=== PATIENT | female | born 1935 | race Caucasian/White ===

== ENCOUNTER 2018-11-03 16:22 | Inpatient (IN) ==
--- NOTE | 2018-11-03 19:33 | History & Physical Report ---
Addendum entered and electronically signed by Santa Steiner MD 11/03/18 22:06 : Addendum (Blank) Addendum November 03, 2018 22:02 Left sided chest pain, likely musculoskeletal s/p mechanical fall on to left side -per history consistent with musculoskeletal pain after mechanical fall. + reproducible on exam in left sided ribs. CT of chest revealed no fractures -troponin negative at previous hospital, repeat ordered for AM -will treat with dilaudid PRN as it hurts her to breathe -- incentive spirometry may also be of use. Original Note: Date of Service November 03, 2018 Assessment & Plan (1) Pleural effusion: Ms. Christopher is an 82-year-old female with coronary artery disease , CABG x1 in the past as well as pacer/AICD placement, hypertension, diabetes mellitus, atrial fibrillation, chronic diastolic and systolic CHF, chronic lung disease, JOHN, cirrhosis and ESRD. Also has chronic anemia for which she follows with hematology. She is on in-center hemodialysis MWF. She is a direct admission from [facility]. Had a mechanical fall out of bed on to her left shoulder and side early this morning. Pt states she thinks she was dreaming and wasn't fully awake when she tried to get out of bed. She remembers hitting the floor, and can recall all events since. She was down on her floor, trying to reach her phone, for 30 minutes until her son who lives with her part of the week discovered her and called EMS. At [facility] she was found to have stable vital signs, oxygenating >90 on room air. Labs showed hemoglobin 10.9, hematocrit 37.1. No leukocytosis. INR 1.1. BUN 31. Creatinine 4.0. Potassium 5.7. Magnesium 2.7. Troponin 0 0.02. ProBNP 110,688.0. Anion gap normal. CT of the chest without contrast found no displaced rib fracture. Moderate size right and small left pleural effusions, as well as cirrhosis.. EKG there shows a by ventricular paced rhythm at a rate of 72. Given her pleural effusions, she was sent here for pulmonology. On review of outpatient records, patient follows with Dr. Burgess of [facility], as well as Dr. Griffin in the pulmonology clinic and Dr. Blandon in the cardiology clinic. She has had complications with volume management including ascites and recurrent pleural effusions. She makes urine and voids 2-3 times per day, drinks 1-2 cans of Boost per day. Recently on Oct 22 pt was seen by her lung specialists in [place] Dr. Griffin who noted that her CXR then showed increased pleural effusion and weight up 5lbs. She was not short of breath in the office, but recommended pleurX catheter if there was increasing shortness of breath. Increasing right-sided pleural effusion, chronic lung disease - Oct 22 pt was seen by her lung specialists in [place] Dr. Griffin who noted that her CXR then showed increased pleural effusion and weight up 5lbs. She was not short of breath in the office, but recommended pleurX catheter if there was increasing shortness of breath. Plan: -pulmonolgy consulted, routine, for possible pleurX cath tomorrow -Oxygen as needed -Chest x-ray in a.m. FEN/GI: Heart healthy, T2DM, renal diet DVT ppx: On Eliquis CODE STATUS: Full code as confirmed with patient. DISPO: MedSurg (2) Obstructive sleep apnea: Continue CPAP (3) CAD (coronary artery disease): Continue home Lipitor 20 mg p.o. at bedtime (4) Hx of CABG: As above (5) Biventricular cardiac pacemaker in situ: Stable, no current issues (6) Atrial fibrillation: Currently in sinus, continue Eliquis. Continue home losartan 12.5 daily (7) Type 2 diabetes mellitus: Continue home morning Lantus 20 units. Insulin sliding scale here. (8) Benign essential hypertension: Continue home losartan (9) CHF (congestive heart failure): Continue home Lasix 40 mg twice daily (10) End stage renal disease: On dialysis Sunday -Continue home Nephrocaps -Consult nephrology to coordinate dialysis and patient (11) Cirrhosis of liver: Continue home lactulose as needed No acute encephalopathy, will order ammonia level for a.m. (12) Anemia: This is chronic for patient. Follow. (13) Chronic lung disease: Continue home Advair twice daily Oxygen as needed. Currently oxygenating well on room air. CPAP nightly as above. Pulmonology consult. History of Present Illness Primary Care Provider: Nelson Hernadez MD Ms. Christopher is an 82-year-old female with coronary artery disease, CABG x1 in the past as well as pacer/AICD placement, hypertension, diabetes mellitus, atrial fibrillation, chronic diastolic and systolic CHF, chronic lung disease, JOHN, cirrhosis and ESRD. Also has chronic anemia for which she follows with hematology. She is on in-center hemodialysis MWF. She is a direct admission from [facility]. Had a mechanical fall out of bed on to her left shoulder and side early this morning. Pt states she thinks she was dreaming and wasn't fully awake when she tried to get out of bed. She remembers hitting the floor, and can recall all events since. She was down on her floor, trying to reach her phone, for 30 minutes until her son who lives with her part of the week discovered her and called EMS. At [facility] she was found to have stable vital signs, oxygenating >90 on room air. Labs showed hemoglobin 10.9, hematocrit 37.1. No leukocytosis. INR 1.1. BUN 31. Creatinine 4.0. Potassium 5.7. Magnesium 2.7. Troponin 0 0.02. ProBNP 110,688.0. Anion gap normal. CT of the chest without contrast found no displaced rib fracture. Moderate size right and small left pleural effusions, as well as cirrhosis.. EKG there shows a by ventricular paced rhythm at a rate of 72. Given her pleural effusions, she was sent here for pulmonology. On review of outpatient records, patient follows with Dr. Burgess of [facility], as well as Dr. Griffin in the pulmonology clinic and Dr. Blandon in the cardiology clinic. She has had complications with volume management including ascites and recurrent pleural effusions. She makes urine and voids 2-3 times per day, drinks 1-2 cans of Boost per day. Recently on Oct 22 pt was seen by her lung specialists in [place] Dr. Griffin who noted that her CXR then showed increased pleural effusion and weight up 5lbs. She was not short of breath in the office, but recommended pleurX catheter if there was increasing shortness of breath. Allergies Allergy/AdvReac Type Severity Reaction Status Date / Time adhesive tape Allergy Redness of Verified 11/03/18 21:22 Skin Penicillins Allergy Swelling Verified 11/03/18 21:22 of Lip/Tongue/Throat Home Medications Home Medications Medication Instructions Recorded Confirmed Type Advair Diskus 2 inh Q12 11/03/18 11/03/18 History Bengay Ultra Strength(menthol) 113 g BID 11/03/18 11/03/18 History Colace 100 mg PO UNKNOWN PRN 11/03/18 11/03/18 History Lipitor 20 mg PO HS 11/03/18 11/03/18 History Miralax 17 g PO DAILY 11/03/18 11/03/18 History Nephrocaps 1 cap PO DAILY 11/03/18 11/03/18 History Tylenol 1,000 mg PO UNKNOWN PRN 11/03/18 11/03/18 History apixaban [Eliquis] 2.5 mg PO BID 11/03/18 11/03/18 History brimonidine 1 drp OPHTHALMIC (EYE) BID 11/03/18 11/03/18 History calcium acetate 1,334 mg PO TIDM 11/03/18 11/03/18 History dorzolamide 1 drp BID 11/03/18 11/03/18 History fluticasone 1 spray INTRANASAL DAILY 11/03/18 11/03/18 History furosemide 40 mg PO BID 11/03/18 11/03/18 History insulin aspart U-100 [Novolog See Label Instructions .ROUTE 11/03/18 11/03/18 History Flexpen U-100 Insulin] .COMPLEX insulin glargine [Lantus Solostar 20 units DAILY 11/03/18 11/03/18 History U-100 Insulin] lactulose 15 ml PO UNKNOWN PRN 11/03/18 11/03/18 History latanoprost 1 drp OPHTHALMIC (EYE) HS 11/03/18 11/03/18 History losartan 12.5 mg PO DAILY 11/03/18 11/03/18 History meclizine 25 mg PO UNKNOWN PRN 11/03/18 11/03/18 History multivitamin 1 cap PO DAILY 11/03/18 11/03/18 History mupirocin 22 g BID 11/03/18 11/03/18 History pantoprazole 40 mg PO DAILY 11/03/18 11/03/18 History paroxetine HCl 20 mg PO DAILY 11/03/18 11/03/18 History sennosides [Natural Veg 2 tab PO DAILY PRN 11/03/18 11/03/18 History Laxative(sennosid)] tramadol 50 mg PO UNKNOWN PRN 11/03/18 11/03/18 History Past Med/Surg History Medical History Chronic lung disease (Chronic) Anemia (Chronic) Cirrhosis of liver (Chronic) End stage renal disease (Chronic) CHF (congestive heart failure) (Chronic) Benign essential hypertension (Chronic) Pleural effusion (Chronic) Obstructive sleep apnea (Chronic) Type 2 diabetes mellitus (Chronic) Atrial fibrillation (Chronic) Biventricular cardiac pacemaker in situ (Chronic) CAD (coronary artery disease) (Chronic) Surgical History Hx of CABG (Chronic) Social History Current Living Situation: Alone and Family Current Living Situation Comment: son lives with from Sunday-Sunday Other Information That Helps Us Care for You: No Feels Safe at Home: Yes Safety Concerns: Feels Safe At This Time Smoking Status: Never smoker Hx Alcohol Use: Yes Alcohol Intake Frequency: holidays/special occasions only Hx Substance Use: No Beliefs That Will Affect Care: None Preferred Language: Chadian Communication Ability: Effective Supervisor Claims Required: No Review of Systems All systems reviewed & are unremarkable except as noted in HPI & below (Patient endorses chronic left lower extremity swelling, and history of what sounds like a venous stasis ulcer on her right lower extremity which is healing now. She endorses tenderness in her left ribs. She states it is painful to take deep breaths in her left side. Otherwise denies headache, neck pain, chest pain, abdominal pain, diarrhea or constipation, weakness in her lower extremities.) Physical Exam 2 Physical Exam: GENERAL: Awake, alert to person, place, and time, nontoxic-appearing, in no distress. Well nourished. HENT: Normocephalic, atraumatic. . Mucus membranes appear moist. EYES: Normal conjunctiva. Sclera non-icteric. EOMI. NECK: Supple. Full range of motion. No JVD RESPIRATORY: Diminished at bases -- difficult exam given body habitus. Normal work of breathing. CARDIAC: Regular rate, normal rhythm. Extremities warm and well perfused, 2+ radial pulses bilaterally; 2+ posterior tibialis pulses bilaterally. ABDOMEN: Soft, non-distended. No tenderness to palpation in all four quadrants. No rebound or guarding. No masses. Bowel sounds are normal. LOWER EXTREMITIES: Inspection of calves reveal left larger than right. LEFT calf is erythematous, nontender and edematous. RIGHT calf has trace edema and a healing ulcer on anterior hutton. They are non-tender. 3+ pitting edema on left calf. NEURO: No focal gross focal motor deficits noted. Sensation in tact. CN II-XII grossly in tact. SKIN: Rash not present. No jaundice noted. Superficial lac on left lateral forearm with bandage in tact. PSYCH: Appropriate mood and affect. Cooperative. Exam as done by Santa Steiner MD, Page Designer. Supervising Physician Co-Signing Physician Notes Patient seen and examined, chart reviewed, case discussed with DR. Steiner and I agree with her assessment and plan as above Resident Activity Tracking Resident Involvement: Resident Care Provided Care Provided: Adult [facility]
[2018-11-03] MEDS ORDERED: MAGNESIUM HYDROXIDE SUSP 30 ML UDC PO PRN (20:42)
[2018-11-03] MEDS ORDERED: ALUMINUM/MAGNESIUM SUSP 30 ML UDC PO PRN (20:42)
[2018-11-03] MEDS ORDERED: GLUCAGON FOR INJ 1 MG VIAL SQ PRN (20:42)
[2018-11-03] MEDS ORDERED: GLUCOSE 40% GEL 15 GM TUBE PO PRN (20:42)
[2018-11-03] MEDS ORDERED: DEXTROSE 50% 50 ML SYRINGE IV PRN (20:42)
[2018-11-03] MEDS ORDERED: GLUCOSE 10 TABS/TUBE PO PRN (20:42)
[2018-11-03] MEDS ORDERED: POLYETHYLENE (MIRALAX) 17 GM PACK PO PRN (20:42)
[2018-11-03] MEDS ORDERED: HYDROmorphone INJ 1 MG/ML SYRINGE IV STA (20:47)
[2018-11-03] MEDS ORDERED: PATIENT'S ALLERGY INFO NEEDS ENTERED SCH (21:00)
[2018-11-03] MEDS ORDERED: MECLIZINE HCL 25 MG TAB PO PRN (21:16)
[2018-11-03] MEDS ORDERED: SENNA 8.6 MG TAB PO PRN (21:16)
[2018-11-03] MEDS ORDERED: DOCUSATE SODIUM 100 MG CAP PO PRN (21:16)
[2018-11-03] MEDS ORDERED: LACTULOSE SYRUP 20 GM/30 ML UDC PO PRN (21:16)
[2018-11-03] MEDS: INSULIN ASPART 100 UNITS/ML 3 ML PEN SC SCH (21:34)
--- NOTE | 2018-11-03 21:58 | XRay Report ---
XR elbow LT min 3V routine CLINICAL HISTORY: Left elbow pain status post trauma COMPARISON: None DISCUSSION: No acute fractures are visualized. There is a radial head deformity which is felt to be o ld. Arthritic changes are present at the radiocapitellar joint. There are vascular calcifications. Th ere are multiple surgical clips present. IMPRESSION: 1. Arthritic change 2. No acute fractures Electronically signed by: Abebe Oropeza M.D. 11/03/2018 9:55 PM
[2018-11-03] MEDS: BRIMONIDINE TARTRATE-P 0.15% 5 ML BTL OP SCH (22:23)
[2018-11-03] MEDS: APIXABAN 2.5 MG TAB PO SCH (22:28)
[2018-11-03] MEDS: FUROSEMIDE 40 MG TAB PO SCH (22:29)
[2018-11-03] MEDS: LATANOPROST 0.005% OP SOLN 2.5 ML BTL OP SCH (22:30)
[2018-11-03] MEDS: ATORVASTATIN 20 MG TAB PO SCH (22:30)
[2018-11-03] MEDS: LIDOCAINE 5% 1 PATCH TD SCH (22:31)
[2018-11-03] MEDS: DORZOLAMIDE HCL 2% OPH SOLN 10 ML BTL OP SCH (22:35)
[2018-11-03] MEDS: ADVAIR~ORDER AWAITING ACTION SCH (23:59)
[2018-11-04] MEDS: HYDROmorphone INJ 1 MG/ML SYRINGE IV PRN ×3 (03:13→23:57)
[2018-11-04] MEDS: NEPHROCAPS PO SCH (07:37)
[2018-11-04] MEDS: PARoxetine HCl 20 MG TAB PO SCH (07:38)
[2018-11-04] MEDS: MULTIVITAMIN TAB PO SCH (07:38)
[2018-11-04] MEDS: APIXABAN 2.5 MG TAB PO SCH (07:38)
[2018-11-04] MEDS: CALCIUM ACETATE 667 MG CAP PO SCH ×3 (07:39→19:13)
[2018-11-04] MEDS: FUROSEMIDE 40 MG TAB PO SCH ×2 (07:39→20:27)
[2018-11-04] MEDS: PANTOprazole 40 MG TAB PO SCH (07:40)
[2018-11-04] MEDS: POLYETHYLENE (MIRALAX) 17 GM PACK PO SCH (07:40)
[2018-11-04] MEDS: DORZOLAMIDE HCL 2% OPH SOLN 10 ML BTL OP SCH ×2 (07:40→20:29)
[2018-11-04] MEDS: LOSARTAN POTASSIUM 25 MG TAB PO SCH (07:40)
[2018-11-04] MEDS: BRIMONIDINE TARTRATE-P 0.15% 5 ML BTL OP SCH ×2 (07:41→20:28)
[2018-11-04] MEDS: FLUTICASONE PROPIONATE NA SPR 16 GM BTL SCH (07:42)
[2018-11-04] MEDS: INSULIN GLARGINE SOLOSTAR 100 UNITS/ML 3 ML PEN SC SCH (07:43)
[2018-11-04] MEDS: ADVAIR~ORDER AWAITING ACTION SCH ×3 (07:43→23:57)
[2018-11-04] MEDS: INSULIN ASPART 100 UNITS/ML 3 ML PEN SC SCH ×4 (07:44→20:27)
--- NOTE | 2018-11-04 08:30 | XRay Report ---
XR chest 1V portable CLINICAL HISTORY: 83 years-old Female presenting with pleural effusion. TECHNIQUE: Portable upright AP view of the chest was obtained. COMPARISON: None. FINDINGS: Median sternotomy wires and mediastinal surgical clips noted. Left subclavian implanted cardiac defib rillator with leads to the right atrium, right ventricular apex, and coronary sinus. An additional pr esumably abandoned right ventricular apex lead is also noted. Atherosclerosis of the aortic arch. Car diac silhouette enlarged. Bibasilar hazy opacities with a gradient of density, right greater than lef t. Small moderate right and trace left pleural effusion suspected. Underlying heterogeneity of lung p arenchyma with mild pulmonary vascular prominence and bronchial wall thickening. No large pneumothora x. Degenerative changes of the thoracic spine. IMPRESSION: 1. Cardiomegaly with mild volume overload/congestive change. No sergei pulmonary edema. 2. Small to moderate layering right pleural effusion. 3. Possible trace left pleural effusion. Electronically signed by: Pierre Chapa M.D. 11/04/2018 8:28 AM
[2018-11-04] MEDS ORDERED: SODIUM CHLORIDE 0.9% 1000ML 1,000 ML IV PRN (09:59)
--- NOTE | 2018-11-04 10:16 | Nephrology Consultation ---
Date of Consultation November 04, 2018 Assessment & Plan (1) End stage renal disease: -- Will provide HD today as per chronic outpatient orders. HD RN notified -- Attempt 3.5 L UF w/ HD today to improve respiratory status -- Hold heparin on HD today as patient is on Eliquis therapy (2) Pleural effusion: -- Will attempt 3.5 L UF w/ HD today -- Await Pulmonology/Thoracic Surgery input (3) Anemia: -- Mild anemia. Will monitor and provide ALEXEI if Hgb trends down (4) CAD (coronary artery disease): -- Currently quiescent -- ECG shows ventricular paced rhythm History of Present Illness Reason for Consultation: ESRD requiring HD Requesting Physician: Dr. Cha Attending Physician: Maulik Cha, DO History of Present Illness Ms. Christopher is an 83 year old white female who is seen at the request of Dr. Nash to provide inpatient HD. Medical records in the EMR were reviewed today and are summarized as follows: Ms. Christopher has ESRD and has been on HD for ~ 3 years. She dialyzes via RUE AVG qMWF at [facility] (4hrs F-160NR Qb 400/ Qd 800 2K 2Ca HCO3 30 EDW 100kg). Ms. Christopher was last dialyzed 11/01 and left 1 kg above her EDW. Ms. Christopher's PMH is also significant for obesity ( 5ft 5in wt 102 kg/224 lbs BMI 37.5), AODM, JOHN, a. fib, ASCVD s/p CABG, pacemaker implantation, cardiac cirrhosis and anemia. Ms. Christopher reports that she was sleeping soundly w/ her CPAP last night and fell out of bed. She injured her L cheeck bone and several ribs. She was taken to [facility] where imaging revealed mild CHF a moderate R pleural effusion and trace L effusion. Transfer to [facility] provided to allow for Pulmonology evaluation and inpatient HD. Allergies Allergy/AdvReac Type Severity Reaction Status Date / Time adhesive tape Allergy Redness of Verified 11/03/18 21:22 Skin Penicillins Allergy Swelling Verified 11/03/18 21:22 of Lip/Tongue/Throat Home Medications Home Medications Medication Instructions Recorded Confirmed Type Advair Diskus 2 inh Q12 11/03/18 11/03/18 History Bengay Ultra Strength(menthol) 113 g BID 11/03/18 11/03/18 History Colace 100 mg PO UNKNOWN PRN 11/03/18 11/03/18 History Lipitor 20 mg PO HS 11/03/18 11/03/18 History Miralax 17 g PO DAILY 11/03/18 11/03/18 History Nephrocaps 1 cap PO DAILY 11/03/18 11/03/18 History Tylenol 1,000 mg PO UNKNOWN PRN 11/03/18 11/03/18 History apixaban [Eliquis] 2.5 mg PO BID 11/03/18 11/03/18 History brimonidine 1 drp OPHTHALMIC (EYE) BID 11/03/18 11/03/18 History calcium acetate 1,334 mg PO TIDM 11/03/18 11/03/18 History dorzolamide 1 drp BID 11/03/18 11/03/18 History fluticasone 1 spray INTRANASAL DAILY 11/03/18 11/03/18 History furosemide 40 mg PO BID 11/03/18 11/03/18 History insulin aspart U-100 [Novolog See Label Instructions .ROUTE 11/03/18 11/03/18 History Flexpen U-100 Insulin] .COMPLEX insulin glargine [Lantus Solostar 20 units DAILY 11/03/18 11/03/18 History U-100 Insulin] lactulose 15 ml PO UNKNOWN PRN 11/03/18 11/03/18 History latanoprost 1 drp OPHTHALMIC (EYE) HS 11/03/18 11/03/18 History losartan 12.5 mg PO DAILY 11/03/18 11/03/18 History meclizine 25 mg PO UNKNOWN PRN 11/03/18 11/03/18 History multivitamin 1 cap PO DAILY 11/03/18 11/03/18 History mupirocin 22 g BID 11/03/18 11/03/18 History pantoprazole 40 mg PO DAILY 11/03/18 11/03/18 History paroxetine HCl 20 mg PO DAILY 11/03/18 11/03/18 History sennosides [Natural Veg 2 tab PO DAILY PRN 11/03/18 11/03/18 History Laxative(sennosid)] tramadol 50 mg PO UNKNOWN PRN 11/03/18 11/03/18 History Patient History Medical History Chronic lung disease (Chronic) Anemia (Chronic) Cirrhosis of liver (Chronic) End stage renal disease (Chronic) CHF (congestive heart failure) (Chronic) Benign essential hypertension (Chronic) Pleural effusion (Chronic) Obstructive sleep apnea (Chronic) Type 2 diabetes mellitus (Chronic) Atrial fibrillation (Chronic) Biventricular cardiac pacemaker in situ (Chronic) CAD (coronary artery disease) (Chronic) Surgical History Hx of CABG (Chronic) Social History Current Living Situation: Alone and Family Current Living Situation Comment: son lives with from Sunday-Sunday Other Information That Helps Us Care for You: No Feels Safe at Home: Yes Safety Concerns: Feels Safe At This Time Smoking Status: Never smoker Hx Alcohol Use: Yes Alcohol Intake Frequency: holidays/special occasions only Hx Substance Use: No Beliefs That Will Affect Care: None Preferred Language: Bruneian Communication Ability: Effective City Auditor Required: No Review of Systems Constitutional: no fever Respiratory: no cough, no dyspnea and no wheezing Cardiovascular: no chest pain and no palpitations Gastrointestinal: no abdominal pain, no nausea and no diarrhea/loose stools Genitourinary (Female): no dysuria Musculoskeletal: no swelling and no muscle weakness Physical Exam 2 Vital Signs (Past 24 Hours): Last Vital Signs Temp 36.6 C 11/04/18 07:30 Pulse 76 11/04/18 07:30 Resp 16 11/04/18 07:30 BP 123/72 11/04/18 07:30 Pulse Ox 95 11/04/18 07:30 Constitutional: + obese Eyes: PERRL, conjunctivae normal, anicteric sclerae Neck: trachea midline, no thyromegaly Respiratory: normal respiratory effort; no respiratory distress Auscultation: + diminished lung sounds diminished breath sounds at the bases bilaterally Cardiovascular: Rate/Rhythm: regular rate and regular rhythm Extremities: + edema and + AV fistula (RUE AVG + bruit) trace pretibial edema Gastrointestinal (Abdomen): normal bowel sounds, soft, nontender, no hepatosplenomegaly Results & Data Laboratory Results Laboratory Tests 11/04/18 11/04/18 05:59 05:59 WBC 4.91 Hgb 10.3 L Hct 34.9 L Plt Count 122 L Sodium 134 L Potassium 5.1 Chloride 100 Carbon Dioxide 25 BUN 40 H Creatinine 4.55 H* Glucose 140 H Calcium 8.8 Total Bilirubin 0.8 AST 12 L ALT 12 Alkaline Phosphatase 123 H Troponin I 0.020 Albumin 3.2 L Diagnostic Findings CXR: Cardiomegally. Mild pulmonary congestion. Moderate R pleural effusion and trace L effusion ECG: Ventricular paced rhythm
[2018-11-04] MEDS: MUPIROCIN 2% OINT 22 GM TUBE EXT SCH ×2 (12:03→20:31)
--- NOTE | 2018-11-04 13:03 | Hospitalist Progress Note ---
Date of Service November 04, 2018 Assessment & Plan (1) Pleural effusion: Increasing right-sided pleural effusion, chronic lung disease - Feb 5 pt was seen by her lung specialists in [place] Dr. Griffin who noted that her CXR then showed increased pleural effusion and weight up 5lbs. She was not short of breath in the office, but recommended pleurX catheter if there was increasing shortness of breath. -uncertain how much this may have changed - but is still needing O2 at this time. pulmonary input pending -?etiology of effusion -conitnue supportive care (2) Obstructive sleep apnea: CPAP when sleeping (3) CAD (coronary artery disease): asymptomatic, continue home meds (4) Hx of CABG: see above (5) Biventricular cardiac pacemaker in situ: Stable, no current issues, continue to follow vitals (6) Atrial fibrillation: rate controlled. eliquis temporarily on hold in case procedure needed for lungs (7) Type 2 diabetes mellitus: continue to follow and adjust basal bolus insulin dosing (8) Benign essential hypertension: Continue home losartan, HD (9) CHF (congestive heart failure): Continue home Lasix 40 mg twice daily, HD (10) End stage renal disease: On dialysis Sunday -Continue home Nephrocaps -nephro input appreciated (11) Cirrhosis of liver: Continue home lactulose as needed No acute encephalopathy, continue to follow (12) Anemia: chronic - continue to follow (13) Chronic lung disease: continue home inhalers - will try to clarify - if COPD would want to add anticholinergic; currently stable (14) DVT prophylaxis: eliquis (currently on hold for ?possible lung drainage) (15) Discharge planning issues: appears weak did have fall at home PT/OT eval and treat; pt aware may need SNF/rehab Subjective feeling ok except for ongoing L sided chest pain - not really with movement or pressure, but still there with a deep breath. no dyspnea/air hunger, however. no cough/sputum. no f/c/s. does appear weak and does not voice opposition to the thought of maybe needing rehab after current stay. reiterates taht she believes she fell out of bed when she was sleeping. Review of Systems All systems reviewed & are unremarkable except as noted in HPI & below Physical Exam 2 Vital Signs (Past 24 Hours): Last Vital Signs Temp 36.6 C 11/04/18 07:30 Pulse 76 11/04/18 07:30 Resp 16 11/04/18 07:30 BP 123/72 11/04/18 07:30 Pulse Ox 95 11/04/18 07:30 Physical Exam: gen - awake, fatigued. nad. heent - nc at mmm. cardio reg no r/m/g. lungs diminished base L > base R. no r/r/w good effort. msk/ost - tenderness maybe mildly reproducible lower ribs (~7-10) mid axillary line L sided, but certainly not markedly so. no crepitis. abd soft nd nt. ext - no c /c. chronic appearing edema. neuro - no focal deficits
[2018-11-04] MEDS ORDERED: LIDOCAINE/PRILOCAINE 2.5% EA CRM EXT ONE (14:20)
[2018-11-04] MEDS ORDERED: LACTULOSE SYRUP 10 GM/15 ML BTL 473 ML PO PRN (14:29)
[2018-11-04] MEDS: LIDOCAINE/PRILOCAINE 2.5% EA CRM EXT SCH (15:25)
[2018-11-04] MEDS: CARBOHYDRATES FOR HYPOGLYCEMIA PO PRN ×4 (19:05→21:18)
[2018-11-04] MEDS: ATORVASTATIN 20 MG TAB PO SCH (20:27)
[2018-11-04] MEDS: LIDOCAINE 5% 1 PATCH TD SCH (20:29)
[2018-11-04] MEDS: LATANOPROST 0.005% OP SOLN 2.5 ML BTL OP SCH (20:30)
[2018-11-04] MEDS: DEXTROSE 5% 1,000 ML IV SCH (20:30)
[2018-11-05] MEDS: HYDROmorphone INJ 1 MG/ML SYRINGE IV PRN ×2 (06:33→16:03)
[2018-11-05] MEDS: INSULIN ASPART 100 UNITS/ML 3 ML PEN SC SCH ×4 (08:10→21:08)
[2018-11-05] MEDS: ADVAIR~ORDER AWAITING ACTION SCH ×2 (08:12→15:30)
[2018-11-05] MEDS: PANTOprazole 40 MG TAB PO SCH (08:13)
[2018-11-05] MEDS: LOSARTAN POTASSIUM 25 MG TAB PO SCH (08:13)
[2018-11-05] MEDS: CALCIUM ACETATE 667 MG CAP PO SCH ×3 (08:13→17:58)
[2018-11-05] MEDS: NEPHROCAPS PO SCH (08:13)
[2018-11-05] MEDS: MULTIVITAMIN TAB PO SCH (08:13)
[2018-11-05] MEDS: PARoxetine HCl 20 MG TAB PO SCH (08:14)
[2018-11-05] MEDS: FUROSEMIDE 40 MG TAB PO SCH ×2 (08:14→21:07)
[2018-11-05] MEDS: FLUTICASONE PROPIONATE NA SPR 16 GM BTL SCH (08:15)
[2018-11-05] MEDS: POLYETHYLENE (MIRALAX) 17 GM PACK PO SCH (08:15)
[2018-11-05] MEDS: BRIMONIDINE TARTRATE-P 0.15% 5 ML BTL OP SCH ×2 (08:16→21:06)
[2018-11-05] MEDS: DORZOLAMIDE HCL 2% OPH SOLN 10 ML BTL OP SCH ×2 (08:16→21:09)
[2018-11-05] MEDS: MUPIROCIN 2% OINT 22 GM TUBE EXT SCH ×2 (08:18→21:09)
[2018-11-05] MEDS: INSULIN GLARGINE SOLOSTAR 100 UNITS/ML 3 ML PEN SC SCH (08:18)
--- NOTE | 2018-11-05 12:13 | Nephrology Progress Note ---
Date of Service November 05, 2018 Assessment & Plan (1) End stage renal disease: -- Volume status & electrolyte balance are acceptable. No acute indication for HD today. -- Will schedule next HD for am and attempt further UF -- Hold heparin on HD as patient is on Eliquis therapy (2) Pleural effusion: -- Await Pulmonology/Thoracic Surgery input -- Will consider follow up CXR after dialysis tomorrow (3) Anemia: -- Mild anemia. Will monitor and provide ALEXEI if Hgb trends down (4) CAD (coronary artery disease): -- Currently quiescent -- ECG shows ventricular paced rhythm Subjective Ms. Christopher was seen & examined in her hospital room this morning. She was breathing comfortably flat in bed on O2 at 2 L / min NC. Ms. Christopher was dialyzed yesterday for 3.5 L UF without complication. Constitutional: no fever Respiratory: no cough Cardiovascular: no chest pain Gastrointestinal: no abdominal pain Physical Exam 2 Vital Signs (Past 24 Hours): Last Vital Signs Temp 36.3 C L 11/05/18 07:00 Pulse 79 11/05/18 07:00 Resp 22 11/05/18 07:00 BP 100/63 11/05/18 07:00 Pulse Ox 98 11/05/18 07:00 Constitutional: + obese Eyes: PERRL, conjunctivae normal, anicteric sclerae Neck: trachea midline, no thyromegaly Respiratory: normal respiratory effort; no respiratory distress Auscultation: + diminished lung sounds Cardiovascular: Rate/Rhythm: regular rate and regular rhythm Extremities: + edema (trace edema) and + AV fistula (RUE AVG + bruit) Gastrointestinal (Abdomen): normal bowel sounds, soft, nontender, no hepatosplenomegaly Results & Data Laboratory Results Laboratory Tests 11/05/18 11/05/18 05:10 05:10 WBC 6.05 Hgb 9.3 L Hct 31.6 L Plt Count 97 L Sodium 133 L Potassium 4.9 Chloride 101 Carbon Dioxide 27 BUN 26 H Creatinine 3.73 H D Glucose 124 H
--- NOTE | 2018-11-05 13:48 | XRay Report ---
XR chest 1V portable CLINICAL HISTORY: 83 years-old Female presenting with S/P Thoracentesis. TECHNIQUE: Portable upright AP view of the chest was obtained. COMPARISON: 11/04/2018. FINDINGS: Left subclavian implanted cardiac defibrillator with leads to the right atrium, coronary sinus, and r ight ventricular apex. Additional right ventricular beat possibly an abandoned pacer lead. Median amarilis rnotomy wires and mediastinal surgical clips noted. Breakage of the inferior portion of the median st ernotomy wires. Atherosclerosis of aortic arch. Cardiac silhouette moderately enlarged. Slight interv al decrease in pulmonary vascular prominence. Significant interval decrease in size of the right pleu ral effusion, which is now trace. Improved aeration of the right lung base. However, decreased aerati on of the left lung base presumably due to increasing left pleural fluid. No pneumothorax. Degenerati ve changes of the thoracic spine. Suspected osteopenia. IMPRESSION: 1. Significant interval decrease in right pleural effusion status post thoracentesis and improved ae ration of the right lung base. No pneumothorax. 2. Increased left pleural effusion with decreased left lung base aeration. 3. Cardiomegaly with slight decrease in volume overload/congestive change. Electronically signed by: Pierre Chapa M.D. 11/05/2018 1:46 PM
--- NOTE | 2018-11-05 14:01 | Procedure Note ---
Procedure Note Date of Service November 05, 2018 Note INDICATION: Pleural effusion PROCEDURE: Right thoracentesis DATE: November 05, 2018 TIME: 1300 PROVIDER: ROZ Garibay CONSENT: Was obtained prior to the procedure by Dr. Winchester and placed on the chart PROCEDURE SUMMARY: Bedside ultra sound was performed to identify an appropriate puncture site. A time out was performed. The patient was prepped and draped in a sterile manner using chlorhexidine scrub after the appropriate level was confirmed by ultrasound. 1% lidocaine was used to numb the region. A finder needle was then used under negative pressure to locate fluid and instill lidocaine into the pleural space. A small incision was made with a #10 scalpel. A needle with overlying catheter was advanced using negative pressure on the syringe until a pleural flash was obtained. The thoracentesis catheter was then threaded without difficulty and without any bleeding. The patient had 1300 mL of leelee colored fluid removed. The incision site was then covered with two Band-Aids with no evidence of bleeding. No immediate complications were noted during the procedure. Dr. Winchester was present during the procedure. A post-procedure chest x-ray was completed and reviewed by Dr. Winchester and no pneumothorax was identified. The patient tolerated the procedure well with no shortness of breath, no hypotension, no increase in heart rate, and no other acute symptoms.
[2018-11-05] MEDS: DEXTROSE 5% 1,000 ML IV SCH (16:02)
--- NOTE | 2018-11-05 17:40 | Hospitalist Progress Note ---
Date of Service November 05, 2018 Assessment & Plan (1) Pleural effusion: Increasing right-sided pleural effusion, chronic lung disease -uncertain how much this may have changed - but is still needing O2 at this time. pulmonary input proceeded, thoracentesis done -?etiology of effusion -studies from thoracentesis pending -Continue supportive care, hopefully can wean O2, although it is not clear what her baseline is (2) Obstructive sleep apnea: CPAP when sleeping, outpatient follow-up (3) CAD (coronary artery disease): No current complaints, left-sided chest pain appears extremely musculoskeletal, continue home meds (4) Hx of CABG: see above (5) Biventricular cardiac pacemaker in situ: Stable, no current issues, continue to follow vitals (6) Atrial fibrillation: rate controlled. Will resume Eliquis tomorrow (7) Type 2 diabetes mellitus: continue to follow and adjust basal bolus insulin dosing �Sugars were low likely due to less carbohydrate intake in hospital, insulins have been reduced (8) Benign essential hypertension: Continue home losartan, HD �Continue to follow numbers (9) CHF (congestive heart failure): Continue home Lasix 40 mg twice daily, HD �Appears euvolemic, although my suspicion is that her effusions are likely CHF related (10) End stage renal disease: On dialysis Sunday -Continue home Nephrocaps -nephro input appreciated (11) Cirrhosis of liver: Continue home lactulose as needed No acute encephalopathy, continue to follow (12) Anemia: chronic - continue to follow (13) Chronic lung disease: continue home inhalers - will try to clarify - if COPD would want to add anticholinergic; currently stable (14) DVT prophylaxis: eliquis (currently on hold for ?possible lung drainage) (15) Discharge planning issues: appears weak did have fall at home PT/OT eval and treat; pt aware may need SNF/rehab, OT eval corroborates this (16) Left sided chest pain: Appearing rib related, most likely bruising, although an occult fracture cannot be entirely ruled out. 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 Continue supportive care Subjective Feeling about the same. Left-sided rib pain with deep breath a little bit with movement. No other new complaints. She notes she is only on 2 L at bedtime as far as oxygen at home not during the day. She wants to have a thoracentesis. Review of Systems All systems reviewed & are unremarkable except as noted in HPI & below Physical Exam 2 Vital Signs (Past 24 Hours): Last Vital Signs Temp 36.4 C L 11/05/18 14:33 Pulse 92 H 11/05/18 14:33 Resp 18 11/05/18 14:33 BP 103/72 11/05/18 14:33 Pulse Ox 92 11/05/18 14:33 Physical Exam: She is awake alert and oriented fatigued appearing but no distress. HEENT normocephalic atraumatic mucous members are moist. Lungs are clear to auscultation bilaterally although it is somewhat diminished base left. No rales rhonchi or wheezes good effort. Cardio is regular without rubs murmurs or gallops. Abdomen soft nondistended nontender. Extremities show ongoing chronic appearing lower extremity edema. She has no focal neuro deficits.
--- NOTE | 2018-11-05 19:33 | Pulmonary Consultation ---
Date of Consultation November 05, 2018 Assessment & Plan (1) Left sided chest pain: Impression: 1. Right-sided transudate pleural effusion, likely related to her cardiac history, possible liver cirrhosis. Chronic kidney disease also contribute to her pleural effusion. 2. Left chest wall contusion, I could not comment on refracture but I did not see it on the chest x-ray. This is related to recent fall. 3. The pleural effusion on the right appears to be recurrent. Plan: 1. Thoracentesis was done, 1350 mL of yellow fluid was removed, transudate in nature. 2. The fluid was sent for cytology, doubt malignancy. 3. The patient has multiple causes for transudate pleural effusion including chronic cardiac history, chronic kidney disease, possible liver cirrhosis. 4. Caution should take place with anti-coagulation in this patient with history of A. fib as she has been having recent falls. 5. No need for Pleurx catheter as the patient had 2 thoracentesis done 7 months apart. Thank you, will follow as needed. History of Present Illness Reason for Consultation: Pleural effusion Requesting Physician: Dr. cha Attending Physician: Maulik Cha DO History of Present Illness Dear Dr. Cha: Thank you for the kind referral of Mrs. Christopher to pulmonary service. This is 83 -year-old female with history of cardiomyopathy, congestive heart failure, pacemaker in place, diabetes, morbid obesity, A. fib, has had a history of pleural effusion in the past which underwent thoracentesis in another hospital, the patient presented to the hospital after she sustained a fall on her left side, she did sustained multiple bruises including right side of the face, right upper extremity, no bruises on the chest wall cavity. The patient was admitted to the hospital for further management. Patient was found to have right-sided pleural effusion and we were asked to evaluate the patient that regard. When I interviewed the patient, she denies any shortness of breath, she does have pain mainly in the left chest wall cavity, did not have any signs of hemoptysis or cough, no increased shortness of breath. She uses oxygen occasionally at home. She did not have increase in her lower extremities edema. No abdominal pain no nausea or vomiting no change in bowel movements or urine habits. No skin rash except for the ecchymosis noted. Neurologically he is otherwise nonfocal. Denies any dizziness no syncopal episode no palpitation. Review of system including 10 systems was unremarkable. Allergies Allergy/AdvReac Type Severity Reaction Status Date / Time adhesive tape Allergy Redness of Verified 11/03/18 21:22 Skin Penicillins Allergy Swelling Verified 11/03/18 21:22 of Lip/Tongue/Throat Home Medications Home Medications Medication Instructions Recorded Confirmed Type Advair Diskus 2 inh Q12 11/03/18 11/03/18 History Bengay Ultra Strength(menthol) 113 g BID 11/03/18 11/03/18 History Colace 100 mg PO UNKNOWN PRN 11/03/18 11/03/18 History Lipitor 20 mg PO HS 11/03/18 11/03/18 History Miralax 17 g PO DAILY 11/03/18 11/03/18 History Nephrocaps 1 cap PO DAILY 11/03/18 11/03/18 History Tylenol 1,000 mg PO UNKNOWN PRN 11/03/18 11/03/18 History apixaban [Eliquis] 2.5 mg PO BID 11/03/18 11/03/18 History brimonidine 1 drp OPHTHALMIC (EYE) BID 11/03/18 11/03/18 History calcium acetate 1,334 mg PO TIDM 11/03/18 11/03/18 History dorzolamide 1 drp BID 11/03/18 11/03/18 History fluticasone 1 spray INTRANASAL DAILY 11/03/18 11/03/18 History furosemide 40 mg PO BID 11/03/18 11/03/18 History insulin aspart U-100 [Novolog See Label Instructions .ROUTE 11/03/18 11/03/18 History Flexpen U-100 Insulin] .COMPLEX insulin glargine [Lantus Solostar 20 units DAILY 11/03/18 11/03/18 History U-100 Insulin] lactulose 15 ml PO UNKNOWN PRN 11/03/18 11/03/18 History latanoprost 1 drp OPHTHALMIC (EYE) HS 11/03/18 11/03/18 History losartan 12.5 mg PO DAILY 11/03/18 11/03/18 History meclizine 25 mg PO UNKNOWN PRN 11/03/18 11/03/18 History multivitamin 1 cap PO DAILY 11/03/18 11/03/18 History mupirocin 22 g BID 11/03/18 11/03/18 History pantoprazole 40 mg PO DAILY 11/03/18 11/03/18 History paroxetine HCl 20 mg PO DAILY 11/03/18 11/03/18 History sennosides [Natural Veg 2 tab PO DAILY PRN 11/03/18 11/03/18 History Laxative(sennosid)] tramadol 50 mg PO UNKNOWN PRN 11/03/18 11/03/18 History Patient History Medical History Chronic lung disease (Chronic) Anemia (Chronic) Cirrhosis of liver (Chronic) End stage renal disease (Chronic) CHF (congestive heart failure) (Chronic) Benign essential hypertension (Chronic) Pleural effusion (Chronic) Obstructive sleep apnea (Chronic) Type 2 diabetes mellitus (Chronic) Atrial fibrillation (Chronic) Biventricular cardiac pacemaker in situ (Chronic) CAD (coronary artery disease) (Chronic) Surgical History Hx of CABG (Chronic) Social History marital status: / Current Living Situation: Alone and Family Current Living Situation Comment: son lives with from Sunday-Sunday Other Information That Helps Us Care for You: No Feels Safe at Home: Yes Safety Concerns: Feels Safe At This Time Smoking Status: Never smoker Hx Alcohol Use: Yes Alcohol Intake Frequency: holidays/special occasions only Hx Substance Use: No Beliefs That Will Affect Care: None Communication Ability: Effective Review of Systems As above review of system including 14 systems was unremarkable except for the above. Physical Exam 2 Vital Signs (Past 24 Hours): Last Vital Signs Temp 36.4 C L 11/05/18 14:33 Pulse 92 H 11/05/18 14:33 Resp 18 11/05/18 14:33 BP 103/72 11/05/18 14:33 Pulse Ox 92 11/05/18 14:33 Physical Exam: Vital signs are stable, O2 saturation 92% on 2 L, S1-S2, A. fib , rate controlled, distant breath sounds bilaterally, abdomen is benign, multiple bruising mainly on the face, left upper extremity, tenderness of the chest wall and left side, diminished breath sounds as mentioned above, edema in the periphery, no skin rash, oral mucosa is moist. Neurologically without any focal deficit. Pain in her right shoulder prevent her from lifting up her right upper extremity Results & Data Laboratory Results Labs were reviewed personally which showed stable CBC and BMP, her BUN/ creatinine are elevated chronically, she has pleural fluid which showed total protein of 3, LDH of 91, and mononuclear cells of 87%. Diagnostic Findings Chest x-ray pre-and post thoracentesis was reviewed which showed reduction in the right-sided pleural effusion, there is pleural effusion on the left side. Ultrasound was done at the bedside by myself which showed large pleural effusion on the right and moderate on the left.
--- NOTE | 2018-11-05 19:35 | Procedure Note ---
Procedure Note Date of Service November 05, 2018 Note Thoracentesis was done at the bedside, under ultrasound guidance, risk and benefit explained to the patient agreed to the procedure, large right-sided pleural effusion was noted under ultrasound, the patient was placed in the right lateral position, procedure was done by ROZ Garcia, and I was present throughout the entire procedure. The procedure was done under strict sterile field, the skin was prepped with chlorhexidine, at the level of the eighth intercostal space at the mid axillary line, under ultrasound guidance, the skin was injected with 10 mL of 1% lidocaine, using scalpel and Seldinger technique, a catheter was inserted into the right pleural cavity, 1350 ML of yellow fluid was removed, the catheter was removed and pressure applied for 2 minutes at the insertion site, no immediate complication, the patient tolerated the procedure very well, fluid sent for analysis and turned out to be transudate. Chest x-ray showed no pneumothorax, resolution of the right pleural effusion.
[2018-11-05] MEDS: LIDOCAINE 5% 1 PATCH TD SCH (21:07)
[2018-11-05] MEDS: ATORVASTATIN 20 MG TAB PO SCH (21:08)
[2018-11-05] MEDS: LATANOPROST 0.005% OP SOLN 2.5 ML BTL OP SCH (21:09)
[2018-11-06] MEDS: ADVAIR~ORDER AWAITING ACTION SCH ×3 (00:02→16:28)
[2018-11-06] MEDS: HYDROmorphone INJ 1 MG/ML SYRINGE IV PRN (04:01)
[2018-11-06] MEDS ORDERED: ONDANSETRON INJ 2 MG/ML 2 ML VIAL IV PRN (04:11)
[2018-11-06] MEDS ORDERED: HEPARIN 100 UNIT/ML 5ML FLUSH FLUSH PRN (04:15)
[2018-11-06] MEDS ORDERED: EPOETIN ALFA 10,000 UNITS/ML VIAL IV ONE (06:00)
[2018-11-06] MEDS: DEXTROSE 5% 1,000 ML IV SCH ×3 (08:13→22:52)
[2018-11-06] MEDS: PARoxetine HCl 20 MG TAB PO SCH (08:14)
[2018-11-06] MEDS: NEPHROCAPS PO SCH (08:14)
[2018-11-06] MEDS: MULTIVITAMIN TAB PO SCH (08:14)
[2018-11-06] MEDS: CALCIUM ACETATE 667 MG CAP PO SCH ×3 (08:14→16:54)
[2018-11-06] MEDS: PANTOprazole 40 MG TAB PO SCH (08:14)
[2018-11-06] MEDS: BRIMONIDINE TARTRATE-P 0.15% 5 ML BTL OP SCH (08:15)
[2018-11-06] MEDS: FUROSEMIDE 40 MG TAB PO SCH (08:15)
[2018-11-06] MEDS: POLYETHYLENE (MIRALAX) 17 GM PACK PO SCH (08:15)
[2018-11-06] MEDS: FLUTICASONE PROPIONATE NA SPR 16 GM BTL SCH (08:15)
[2018-11-06] MEDS: DORZOLAMIDE HCL 2% OPH SOLN 10 ML BTL OP SCH (08:16)
[2018-11-06] MEDS: INSULIN GLARGINE SOLOSTAR 100 UNITS/ML 3 ML PEN SC SCH (08:17)
[2018-11-06] MEDS: MUPIROCIN 2% OINT 22 GM TUBE EXT SCH (08:17)
[2018-11-06] MEDS: INSULIN ASPART 100 UNITS/ML 3 ML PEN SC SCH ×3 (08:18→16:54)
[2018-11-06] MEDS: APIXABAN 2.5 MG TAB PO SCH (10:25)
--- NOTE | 2018-11-06 11:02 | Nephrology Progress Note ---
Date of Service November 06, 2018 Assessment & Plan (1) End stage renal disease: -- HD today. Will attempt 3 L UF -- Hold heparin on HD as patient is on Eliquis therapy (2) Pleural effusion: -- Thoracentesis completed 11/05/18 and 1300 cc transudative fluid removed (3) Anemia: -- Mild anemia. Will monitor and provide ALEXEI if Hgb trends down (4) CAD (coronary artery disease): -- Currently quiescent -- ECG shows ventricular paced rhythm Subjective Ms. Christopher was seen & examined in her hospital room this morning. She underwent R thoracentesis yesterday for 1300 cc transudative volume removal. Ms. Christopher is breathing comfortably on O2 at 2 L / min NC. She reports that she usually only uses O2 at nighttime Physical Exam 2 Vital Signs (Past 24 Hours): Last Vital Signs Temp 36.6 C 11/06/18 07:25 Pulse 78 11/06/18 07:25 Resp 18 11/06/18 07:25 BP 94/61 L 11/06/18 07:25 Pulse Ox 90 11/06/18 07:25 Constitutional: + obese Eyes: PERRL, conjunctivae normal, anicteric sclerae Neck: trachea midline, no thyromegaly Respiratory: normal respiratory effort; no respiratory distress Auscultation: + diminished lung sounds Cardiovascular: Rate/Rhythm: regular rate and regular rhythm Extremities: + edema (trace edema) and + AV fistula (RUE AVG + bruit) Gastrointestinal (Abdomen): normal bowel sounds, soft, nontender, no hepatosplenomegaly Results & Data Laboratory Results Laboratory Tests 11/06/18 07:58 WBC 5.65 Hgb 11.0 L Hct 37.0 Plt Count 127 L Laboratory Tests 11/06/18 07:58 Sodium 130 L Potassium 5.0 Chloride 97 L Carbon Dioxide 26 BUN 39 H Creatinine 4.76 H* D Glucose 139 H
[2018-11-06] MEDS ORDERED: SODIUM CHLORIDE 0.9% 1000ML 1,000 ML IV PRN (12:05)
[2018-11-06] MEDS ORDERED: Nursing to Pharmacy Communication ONE (12:48)
--- NOTE | 2018-11-06 16:12 | Hospitalist Progress Note ---
Date of Service November 06, 2018 Assessment & Plan (1) Pleural effusion: Now status post thoracentesis. Await further follow-up from pulmonary but this appears to be transudate of, most likely CHF related. Continue CHF management. (2) Obstructive sleep apnea: CPAP when sleeping, outpatient follow-up (3) CAD (coronary artery disease): Currently asymptomatic, left-sided chest pain appears extremely musculoskeletal, continue home meds (4) Hx of CABG: see above (5) Biventricular cardiac pacemaker in situ: Stable, no current issues, continue to follow vitals (6) Atrial fibrillation: rate remains controlled. Will resume Eliquis tomorrow (7) Type 2 diabetes mellitus: Sugars have been better with a reduction in insulin. Her lows were likely related to a carb/insulin mismatch with diet in the hospital. Given that her A1c is 6, we will send her out on lower dosing of insulin as (8) Benign essential hypertension: Continue home losartan, HD �Continue to follow numbers to improve control is adequate (9) CHF (congestive heart failure): Continue home Lasix 40 mg twice daily, HD �Appears euvolemic at this time (10) End stage renal disease: On dialysis Sunday -Continue home Nephrocaps -nephro input appreciated (11) Cirrhosis of liver: Continue home lactulose as needed No acute encephalopathy, continue to follow (12) Anemia: chronic - continue to follow (13) Chronic lung disease: continue home inhalers - will try to clarify - if COPD would want to add anticholinergic; currently stable (14) DVT prophylaxis: eliquis (resumed today) (15) Discharge planning issues: appears weak did have fall at home PT/OT eval and treat ongoing, awaiting SNF bed (16) Left sided chest pain: Appearing rib related, most likely bruising, although an occult fracture cannot be entirely ruled out. This is not evident on chest films that have been done, and at this point dedicated rib films confirming a small fracture would not really exchange trouble shooter. Continue supportive care and the lidocaine patch, continue to follow her clinically (17) Heel pain: Late finding likely more just a bruising type of mechanism, but given that she has a little bit point tender in her whole hospitalization did start with a fall, check heel x-rays to rule out an occult fracture Subjective She is out of bed more alert than yesterday. She notes she feels about the same , she has left-sided chest pain. She does believe her breathing is a bit better after thoracentesis. She is waiting on placement. She incidentally notes that her right foot hurts more, at the heel. She has not noticed this before. No other complaints, review of systems otherwise negative except for as above Review of Systems All systems reviewed & are unremarkable except as noted in HPI & below Physical Exam 2 Vital Signs (Past 24 Hours): Last Vital Signs Temp 36.6 C 11/06/18 14:48 Pulse 87 11/06/18 14:48 Resp 18 11/06/18 14:48 BP 94/54 L 11/06/18 14:48 Pulse Ox 94 11/06/18 14:48 Physical Exam: General she is awake and alert pleasant no distress. HEENT normocephalic atraumatic mucous members are moist. Cardio is regular without rubs murmurs or gallops. Lungs are clear to auscultation bilaterally no rales rhonchi or wheezes except for may be slightly diminished air entry base left but better than before. Skin shows no rashes no pallor or icterus. Abdomen is soft nondistended nontender no masses or organomegaly. Extremities show ongoing chronic edema, she now also has a degree of tenderness at the posterior heel on the right with no crepitus. Neuro shows no focal deficits.
[2018-11-06] MEDS: LOSARTAN POTASSIUM 25 MG TAB PO SCH (17:25)
--- NOTE | 2018-11-06 18:31 | XRay Report ---
XR foot RT 2V CLINICAL HISTORY: right heel pain - posterior calcaneous area COMPARISON: None. DISCUSSION: No acute fractures are visualized. There are extensive vascular calcifications present. T here is a plantar calcaneal spur. There is mild dorsal soft tissue swelling. IMPRESSION: 1. No acute fractures 2. Small plantar calcaneal spur 3. No destructive lesions are visualized Electronically signed by: Abebe Oropeza M.D. 11/06/2018 6:29 PM
[2018-11-06] MEDS: TRAMADOL HCL 50 MG TABLET PO PRN (19:14)
[2018-11-06] MEDS: LIDOCAINE/PRILOCAINE 2.5% EA CRM EXT SCH (22:53)
[2018-11-07] MEDS: DORZOLAMIDE HCL 2% OPH SOLN 10 ML BTL OP SCH ×2 (00:58→08:21)
[2018-11-07] MEDS: TRAMADOL HCL 50 MG TABLET PO PRN ×2 (00:58→04:57)
[2018-11-07] MEDS: LATANOPROST 0.005% OP SOLN 2.5 ML BTL OP SCH (00:59)
[2018-11-07] MEDS: APIXABAN 2.5 MG TAB PO SCH ×2 (01:01→08:19)
[2018-11-07] MEDS: ATORVASTATIN 20 MG TAB PO SCH (01:01)
[2018-11-07] MEDS: LIDOCAINE 5% 1 PATCH TD SCH (01:01)
[2018-11-07] MEDS: INSULIN ASPART 100 UNITS/ML 3 ML PEN SC SCH ×3 (01:02→12:22)
[2018-11-07] MEDS: MUPIROCIN 2% OINT 22 GM TUBE EXT SCH ×2 (01:02→08:18)
[2018-11-07] MEDS: BRIMONIDINE TARTRATE-P 0.15% 5 ML BTL OP SCH ×2 (01:02→08:17)
[2018-11-07] MEDS: FUROSEMIDE 40 MG TAB PO SCH ×2 (01:35→08:27)
[2018-11-07] MEDS: ADVAIR~ORDER AWAITING ACTION SCH ×2 (01:36→08:16)
[2018-11-07] MEDS: CALCIUM ACETATE 667 MG CAP PO SCH ×2 (08:17→12:22)
[2018-11-07] MEDS: FLUTICASONE PROPIONATE NA SPR 16 GM BTL SCH (08:19)
[2018-11-07] MEDS: PARoxetine HCl 20 MG TAB PO SCH (08:21)
[2018-11-07] MEDS: POLYETHYLENE (MIRALAX) 17 GM PACK PO SCH (08:21)
[2018-11-07] MEDS: NEPHROCAPS PO SCH (08:21)
[2018-11-07] MEDS: MULTIVITAMIN TAB PO SCH (08:21)
[2018-11-07] MEDS: PANTOprazole 40 MG TAB PO SCH (08:21)
[2018-11-07] MEDS: LOSARTAN POTASSIUM 25 MG TAB PO SCH (08:25)
[2018-11-07] MEDS: INSULIN GLARGINE SOLOSTAR 100 UNITS/ML 3 ML PEN SC SCH (09:34)
--- NOTE | 2018-11-07 10:05 | Nephrology Progress Note ---
Date of Service November 07, 2018 Assessment & Plan (1) End stage renal disease: -- Volume status and electrolyte balance are acceptable. No acute indication for HD today -- Weight has dropped from 102 to 98 kg over course of hospitalization. Will continue UF w/ HD tomorrow -- Hold heparin on HD as patient is on Eliquis therapy (2) Pleural effusion: -- Thoracentesis completed 11/05/18 and 1300 cc transudative fluid removed (3) Anemia: -- Mild anemia. Will monitor and provide ALEXEI if Hgb trends down (4) CAD (coronary artery disease): -- Currently quiescent -- ECG shows ventricular paced rhythm Subjective Ms. Christopher was seen & examined in her hospital room this morning. She underwent R thoracentesis 11/05 for 1300 cc transudative volume removal. Ms. Christopher is breathing comfortably on O2 at 2 L / min NC. She reports that she usually only uses O2 at nighttime. She voices no new medical concerns Physical Exam 2 Vital Signs (Past 24 Hours): Last Vital Signs Temp 36.3 C L 11/07/18 07:30 Pulse 77 11/07/18 07:30 Resp 16 11/07/18 07:30 BP 101/49 L 11/07/18 07:30 Pulse Ox 98 11/07/18 07:30 Constitutional: + obese Eyes: PERRL, conjunctivae normal, anicteric sclerae Neck: trachea midline, no thyromegaly Respiratory: normal respiratory effort; no respiratory distress Auscultation: + diminished lung sounds Cardiovascular: Rate/Rhythm: regular rate and regular rhythm Extremities: + edema (trace edema) and + AV fistula (RUE AVG + bruit) Gastrointestinal (Abdomen): normal bowel sounds, soft, nontender, no hepatosplenomegaly Results & Data Laboratory Results Laboratory Tests 11/07/18 11/07/18 06:21 06:21 WBC 5.17 Hgb 10.1 L Hct 33.5 L Plt Count 121 L Sodium 134 L Potassium 3.7 D Chloride 100 Carbon Dioxide 25 BUN 20 H Creatinine 3.24 H D Glucose 98
--- NOTE | 2018-11-07 14:58 | Discharge Summary ---
Date of Service November 07, 2018 Admission HPI Per Admitting Provider Ms. Christopher is an 82-year-old female with coronary artery disease, CABG x1 in the past as well as pacer/AICD placement, hypertension, diabetes mellitus, atrial fibrillation, chronic diastolic and systolic CHF, chronic lung disease, JOHN, cirrhosis and ESRD. Also has chronic anemia for which she follows with hematology. She is on in-center hemodialysis MWF. She is a direct admission from [facility]. Had a mechanical fall out of bed on to her left shoulder and side early this morning. Pt states she thinks she was dreaming and wasn't fully awake when she tried to get out of bed. She remembers hitting the floor, and can recall all events since. She was down on her floor, trying to reach her phone, for 30 minutes until her son who lives with her part of the week discovered her and called EMS. At [facility] she was found to have stable vital signs, oxygenating >90 on room air. Labs showed hemoglobin 10.9, hematocrit 37.1. No leukocytosis. INR 1.1. BUN 31. Creatinine 4.0. Potassium 5.7. Magnesium 2.7. Troponin 0 0.02. ProBNP 110,688.0. Anion gap normal. CT of the chest without contrast found no displaced rib fracture. Moderate size right and small left pleural effusions, as well as cirrhosis.. EKG there shows a by ventricular paced rhythm at a rate of 72. Given her pleural effusions, she was sent here for pulmonology. On review of outpatient records, patient follows with Dr. Burgess of [facility], as well as Dr. Griffin in the pulmonology clinic and Dr. Blandon in the cardiology clinic. She has had complications with volume management including ascites and recurrent pleural effusions. She makes urine and voids 2-3 times per day, drinks 1-2 cans of Boost per day. Recently on Oct 22 pt was seen by her lung specialists in [place] Dr. Griffin who noted that her CXR then showed increased pleural effusion and weight up 5lbs. She was not short of breath in the office, but recommended pleurX catheter if there was increasing shortness of breath. Principal Diagnosis fall/weakness Discharge Exam General she is awake and alert pleasant no distress. HEENT normal cephalic atraumatic mucous members are moist. Breathing is unlabored no accessory muscle use good effort, she does still need nasal cannula oxygen. Skin shows no rashes no pallor or icterus. Edema chronic bilateral lower extremities. No focal neuro deficits. Discharge Data Allergies Allergy/AdvReac Type Severity Reaction Status Date / Time adhesive tape Allergy Redness of Verified 11/03/18 21:22 Skin Penicillins Allergy Swelling Verified 11/03/18 21:22 of Lip/Tongue/Throat Consultations 11/03/18 20:42 Consult Pulmonology Routine 11/03/18 20:43 Consult Nephrology Routine 11/03/18 20:44 Consult Case Management - Discharge Planning Routine Hospital Course (1) Pleural effusion: Now status post thoracentesis. Transudate, most likely consistent with CHF, liver disease, or both. Continue to treat to maintain U bulimia. Follow-up with her pulmonary in [place]. (2) Obstructive sleep apnea: CPAP when sleeping (3) CAD (coronary artery disease): Currently asymptomatic, left-sided chest pain appears extremely musculoskeletal, continue home meds (4) Hx of CABG: see above (5) Biventricular cardiac pacemaker in situ: Stable, no current issues, outpatient follow-up (6) Atrial fibrillation: Rate is controlled She is on Eliquis for anticoagulation (7) Type 2 diabetes mellitus: Sugars have been better with a reduction in insulin. Given that her A1c is 6, we will send her out on lower dosing of insulin, continue to follow sugars (8) Benign essential hypertension: Continue home losartan, HD (9) CHF (congestive heart failure): Continue home Lasix 40 mg twice daily, HD �Appears euvolemic at this time (10) End stage renal disease: On dialysis Sunday -Continue home Nephrocaps -Outpatient follow-up with her regular mica was[facility] gluer (11) Cirrhosis of liver: Continue home lactulose as prescribed No acute encephalopathy, continue to follow (12) Anemia: chronic - continue to follow Follow periodic CBC (13) Chronic lung disease: continue home inhalers - will need to clarify with PCP- if COPD would want to add anticholinergic; currently stable, this can be followed up as an outpatient (14) DVT prophylaxis: eliquis (15) Discharge planning issues: appears weak did have fall at home PT/OT eval and treat ongoing at [facility] ultimately to be to get back home. (16) Left sided chest pain: Appearing rib related, most likely bruising, although an occult fracture cannot be entirely ruled out. This is not evident on chest films that have been done, and at this point dedicated rib films confirming a small fracture would not really change lead. Continue supportive care and the lidocaine patch, continue to follow her clinically (17) Heel pain: Late finding likely more just a bruising type of mechanism, x-rays are negative Total Time Total Time Spent Total Time Spent (In Minutes): <30 Discharge Plan Discharge Items Patient Disposition: Transfer Intermediate Fac Reason For Visit: CHF RT PLEURAL EFFUSION Discharge Diagnosis: fall/weakness Discharge Goals: Diagnostic testing, Improve function, Increase independence and Therapeutic intervention Activity: Resume your previous activity Activity Comment: PT/OT ongoing eval and treat Non-emergency contact: Primary Care Provider and Specialist Call non-emergency contact if: you have any medication questions Follow-up/Referrals: Nelson Hernadez MD [Primary Care Provider] - Diet: Low Sodium (2gm) Addtl Provider Instructions: weakness - presentation initiated with fall out of bed. unfortunately quite weak - nonspecific and most consistent with general deconditioning - for ongoing PT/OT - goal of returning to [facility] "bumps and bruises" -has bruising predominantly left sided from fall - pain control improving ( tramadol 25mg q6 prn has worked well, obviously wean as quickly as tolerated) -R heel pain - xrays show spurring but no fracture -left rib pain - lidocaine patch, time. no fractures identified, d/w pt that subtle occult fracture could be possible but that management would not change - - supportive care/time pleural effusions -follows actively with Dr Griffin in [place] -did have 1300ml thoracentesis here - transudative most c/w CHF vs less likely from liver (or elements of both) -appearing euvolemic here from CHF standpoint - home meds unchanged in this regard -requiring nasal cannula O2 here - would continue to maintain pulse ox >92%, wean if tolerated -- pt notes chronically using 2L HS at home ESRD -ongoing HD on // schedule DM on insulin -A1c 6% -insulins reduced from home regimen -sugars have been good control overall with reduced regimen Prescriptions: New tramadol 50 mg Tablet 25 mg PO Q4H PRN (Reason: pain) Qty: 10 RF: 0 insulin glargine [Lantus Solostar U-100 Insulin] 100 unit/mL (3 mL) Insulin Pen 15 unit SC QAM Qty: 1 RF: 0 insulin aspart U-100 [Novolog Flexpen U-100 Insulin] 100 unit/mL Insulin Pen 1 units SC AC Qty: 1 RF: 0 lidocaine 5 % Adhesive Patch,Medicated 1 patch Transdermal HS Qty: 10 RF: 0 Continue apixaban 2.5 mg tablet 2.5 mg PO BID RF: 0 furosemide 40 mg tablet 40 mg PO BID RF: 0 meclizine 25 mg tablet 25 mg PO UNKNOWN PRN (Reason: Dizziness) RF: 0 losartan 25 mg tablet 12.5 mg PO DAILY RF: 0 fluticasone 50 mcg/actuation spray,suspension 1 spray Intranasal DAILY RF: 0 paroxetine HCl 20 mg tablet 20 mg PO DAILY RF: 0 pantoprazole 40 mg tablet,delayed release (DR/EC) 40 mg PO DAILY RF: 0 latanoprost 0.005 % drops 1 drp ophthalmic (eye) HS RF: 0 brimonidine 0.15 % drops 1 drp ophthalmic (eye) BID RF: 0 dorzolamide 2 % drops 1 drp BID RF: 0 sennosides 8.6 mg tablet 2 tab PO DAILY PRN (Reason: Constipation) RF: 0 calcium acetate 1,334 mg PO TIDM RF: 0 Advair Diskus 2 inh Q12 RF: 0 mupirocin 22 g BID RF: 0 Nephrocaps 1 cap PO DAILY RF: 0 Bengay Ultra Strength(menthol) 113 g BID RF: 0 lactulose 15 ml PO UNKNOWN PRN (Reason: Other) RF: 0 Lipitor 20 mg PO HS RF: 0 Colace 100 mg PO UNKNOWN PRN (Reason: constipation) RF: 0 Miralax 17 g PO DAILY RF: 0 multivitamin 1 cap PO DAILY RF: 0 Discontinued insulin aspart U-100 [Novolog Flexpen U-100 Insulin] 100 unit/mL insulin pen See Label Instructions .ROUTE .COMPLEX RF: 0 insulin glargine [Lantus Solostar U-100 Insulin] 100 unit/mL (3 mL) insulin pen 20 units DAILY RF: 0 tramadol 50 mg PO UNKNOWN PRN (Reason: Pain) RF: 0 Tylenol 1,000 mg PO UNKNOWN PRN (Reason: Pain) RF: 0 Stand-Alone Forms: [facility] Discharge Orders: Discharge Order (Routine); Ordered 11/07/18 Ordered By: Maulik Cha Skilled Items Patient informed of condition?: Yes DNR: No Discharge Level of Care: Skilled Communicable Disease: No Discharge Prognosis: Improving Admission Data Admit Date/Time: 11/03/18 19:02 Attending Provider: Maulik Cha Admit Provider: Santa Steiner Primary Care Provider: Nelson Hernadez Other Providers: Jim Winchester ; Gary Carlson ; Augie Hernández ; Eunice Bowens ; Brittanie Cali ; Aman Little ; Sulema Crow ; Hakeem Gonzalez Service: Telemetry Other Interventions: Discharge Summary Assessment (RN) Last Done: 11/07/18 10:56 DC Date/Time DO NOT enter until pt leaves facility: 11/07/18 13:50
[2018-11-08] MEDS ORDERED: SODIUM CHLORIDE 0.9% 1000ML 1,000 ML IV PRN (07:00)
== END 2018-11-07 13:50 | DRG 291 ==
LOC: SUATTDRO 19:02 → 2W 19:02
DX: I25.10 Atherosclerotic heart disease of native coronary artery without angina pectoris; N18.6 End stage renal disease; S20.20XA Contusion of thorax, unspecified, initial encounter; G47.33 Obstructive sleep apnea (adult) (pediatric); J98.4 Other disorders of lung; J91.8 Pleural effusion in other conditions classified elsewhere; D64.9 Anemia, unspecified; I50.42 Chronic combined systolic (congestive) and diastolic (congestive) heart failure; I13.2 Hypertensive heart and chronic kidney disease with heart failure and with stage 5 chronic kidney disease, or end stage renal disease; K74.60 Unspecified cirrhosis of liver; I48.91 Unspecified atrial fibrillation; W19.XXXA Unspecified fall, initial encounter; Y92.009 Unspecified place in unspecified non-institutional (private) residence as the place of occurrence of the external cause; Z95.810 Presence of automatic (implantable) cardiac defibrillator; E11.9 Type 2 diabetes mellitus without complications; Z88.0 Allergy status to penicillin; Z95.1 Presence of aortocoronary bypass graft; I42.9 Cardiomyopathy, unspecified

== ENCOUNTER 2019-02-17 00:20 | Inpatient (IN) ==
[2019-02-17] MEDS ORDERED: POLYETHYLENE (MIRALAX) 17 GM PACK PO PRN (03:21)
[2019-02-17] MEDS ORDERED: ONDANSETRON INJ 2 MG/ML 2 ML VIAL IV PRN (03:21)
[2019-02-17] MEDS ORDERED: MAGNESIUM HYDROXIDE SUSP 30 ML UDC PO PRN (03:21)
[2019-02-17] MEDS ORDERED: ALUMINUM/MAGNESIUM SUSP 30 ML UDC PO PRN (03:21)
--- NOTE | 2019-02-17 03:32 | History & Physical Report ---
Date of Service February 17, 2019 Assessment & Plan (1) CHF (congestive heart failure): 83yo F complex PMH including COPD, ESRD on dialysis, chronic pleural effusions presented to [facility] for acute dyspnea. Was managed with CPAP, Bipap. Patient transferred to [facility] for dialysis and for scheduled pleurx catheter placement by Dr. Dimas on 02/18/19. Acute Exacerbation of chronic hypoxic respiratory failure -Presumptively related to fluid overload in setting of chronic effusions, CHF, ESRD, COPD -Pt at baseline now, monitor for required bipap, etc. -Pt takes 40mg lasix BID despite minimal UO, will continue -Fluid restriction of 1500cc -Await image reads from [facility]. -Will obtain CXR in am -Pt received solumedrol 125/atrovent/xopenex at OSH. Since pt at baseline will keep on home regimen. CHF/Chronic Pleural effusion -Chronic, per OSH appears stable -Consulted Dr. Dimas. Patient already scheduled for catheter placement 02/18. -Continue PO lasix 40 BID ESRD -Consulted nephrology for dialysis, which patient receives MWF -Makes minimal urine -Continue nephrocaps, sevelamer -Renal dosing of meds COPD -Continue breo, advair 250/50, duonebs prn -Chronically wears 2L at night, has been requiring 2L during day recently T2DM -ISS initiated, pt on lantus 20 u daily as outpt Chronic afib -On eliquis 2.5 BID CAD s/p CABG, AICD/pacemaker in situ -Continue to monitor, paced rhythm -On eliquis, no asa on record -Cont losartan/statin HTN -losartan HLD -Atorvastatin JOHN -Pt wears CPAP at night Anemia -Chronic. OSH shows H/h 9. Cirrhosis of liver -Without apparent ascites/trace ascites -pantoprazole -Pt prev on lactulose, not on current med list Chronic pain -lidoderm patch -Tramadol 50 prn Depression -paroxetine 20 Code: DNR/DNI Dispo: tele DVTP: eliquis (2) Pleural effusion: (3) End stage renal disease: (4) Chronic lung disease: (5) Type 2 diabetes mellitus: (6) CAD (coronary artery disease): (7) Hx of CABG: (8) Benign essential hypertension: (9) Anemia: (10) Obstructive sleep apnea: (11) Cirrhosis of liver: (12) Atrial fibrillation: (13) Biventricular cardiac pacemaker in situ: (14) Chronic pain: (15) Chronic pulmonary edema: (16) Depression: History of Present Illness Chief Complaint: shortness of breath Primary Care Provider: Nelson Hernadez MD Patient is an 83yo F complex PMH including ESRD on dialysis, Chronic systolic CHF, COPD, chronic pleural effusion who presents as direct admit from [facility] for acute onset dyspnea. She notes this occurred about 7pm on 02/16 and immediately called EMS. On arrival at [facility] her saturations were in the high 80s with tachypnea. She was placed on CPAP and mildly improved but could not complete full sentences while talking. Started on Bipap. She was given xopenex, atrovent neb, methylpred 125, and 40 IV lasix and was eventually well enough to move to nasal cannula with O2sats in the 90s. OSH labs significant for chronic anemia (9.5/33.5), Cr 5.2, BNP of 101,926. Patient makes "trickles" of her own urine, gets dialysis MWF. Patient notes she normally wears 2L oxygen at night but in the past few weeks has required all-day oxygen of 2L. CT chest at OSH per provider read showed pleural effusion on R similar to previous. She requested transfer to our facility as she was planning on having pleurx catheter placed by Dr. Dimas on 02/18. Other PMH includes: CAD s/p CABG, AICD/pacemaker in situ, Chronic afib on eliquis, CKD IV on dialysis, COPD, chronic systolic CHF, chronic pleural effusion/pulmonary edema, T2DM, depression, hepatic cirrhosis (unspecified without apparent ascites), chronic pain, HTN, HLD, JOHN on CPAP, chronic anemia Allergies Allergy/AdvReac Type Severity Reaction Status Date / Time adhesive tape Allergy Redness of Verified 11/03/18 21:22 Skin Penicillins Allergy Swelling Verified 11/03/18 21:22 of Lip/Tongue/Throat Home Medications Home Medications Medication Instructions Recorded Confirmed Type Lipitor 20 mg PO HS 11/03/18 02/17/19 History Miralax 17 g PO DAILY 11/03/18 02/17/19 History Nephrocaps 1 cap PO DAILY 11/03/18 02/17/19 History apixaban 2.5 mg PO BID 11/03/18 02/17/19 History brimonidine 1 drp OPHTHALMIC (EYE) BID 11/03/18 02/17/19 History dorzolamide 1 drp BID 11/03/18 02/17/19 History fluticasone propionate 1 spray INTRANASAL DAILY 11/03/18 02/17/19 History meclizine 25 mg PO Q12 PRN 11/03/18 02/17/19 History pantoprazole 40 mg PO BID 11/03/18 02/17/19 History paroxetine HCl 20 mg PO DAILY 11/03/18 02/17/19 History sennosides 2 tab PO DAILY PRN 11/03/18 02/17/19 History lidocaine 1 patch TRANSDERMAL HS #10 ea 11/07/18 02/17/19 Rx tramadol 25 mg PO Q4H PRN #10 tab 11/07/18 02/17/19 Rx Breo Ellipta 1 inh INHALATION DAILY 02/17/19 02/17/19 History Lantus Solostar U-100 Insulin 20 unit SC DAILY 02/17/19 02/17/19 History ipratropium-albuterol 3 ml INHALATION Q6 PRN 02/17/19 02/17/19 History melatonin 3 mg PO HS 02/17/19 02/17/19 History sevelamer HCl 800 mg PO TID 02/17/19 02/17/19 History Past Med/Surg History Medical History Chronic lung disease (Chronic) Anemia (Chronic) Cirrhosis of liver (Chronic) End stage renal disease (Chronic) CHF (congestive heart failure) (Chronic) Benign essential hypertension (Chronic) Pleural effusion (Chronic) Obstructive sleep apnea (Chronic) Type 2 diabetes mellitus (Chronic) Atrial fibrillation (Chronic) Biventricular cardiac pacemaker in situ (Chronic) CAD (coronary artery disease) (Chronic) Surgical History Hx of CABG (Chronic) Social History Preferred Language: Slovak Communication Ability: Effective Beliefs That Will Affect Care: None marital status: / Current Living Situation: Family Current Living Situation Comment: [facility], home for one day Feels Safe at Home: Yes Smoking Status: Never smoker Second Hand Exposure: Yes (history, no longer is exposed) Hx Alcohol Use: Yes Hx Substance Use: No Review of Systems Review of Systems: All systems reviewed & are unremarkable except as noted in HPI & below Constitutional: + weakness; no fever and no body aches Respiratory: + chest congestion, + dyspnea, + dyspnea on exertion and + stopping breathing during sleep Cardiovascular: + dyspnea at rest, + dyspnea on exertion and + edema; no chest pain, no radiating jaw, neck or arm pain and no syncope Gastrointestinal: no abdominal pain, no nausea and no vomiting Genitourinary: + decreased urination Physical Exam Constitutional: WD/WN, vitals as above + acute distress, + morbidly obese, + frail appearing and + edematous Eyes: PERRL, conjunctivae normal, anicteric sclerae (wearing glasses) ENMT: external ear and nose normal, oropharynx normal Neck: normal visual inspection Respiratory: + labored breathing, + uses accessory muscles, able to speak in complete sentences and + abnormal respiratory pattern Auscultation: + diminished lung sounds, + rhonchi (R>L) and + wheezes Cardiovascular: Rate/Rhythm: + tachycardic Heart Sounds: + murmur Extremities: + edema (2+pitting edema) Gastrointestinal (Abdomen): normal bowel sounds, soft, nontender, no hepatosplenomegaly Inspection/Auscultation: + abdomen distended Skin: no rashes, warm and dry + turgor decreased and + lesion (several skin lesions on chest, arms) Neurologic: PERRL, EOMI, accommodation nl, no face palsy, no dysarthria Psychiatric: Orientation: alert and oriented x 3 Code Status & VTE Plan Code Status DNR/DNI VTE Prophylaxis Plan VTE Prophylaxis will be ordered: Yes Supervising Physician Co-Signing Physician Notes Attending addendum: I have physically seen this patient, have supervised the medical residents activities, and agree with the H&P unless as otherwise noted. Assessment and Plan: Acute on chronic respiratory failure with hypoxia/CHF exacerbation/chronic recurring pleural effusion- Transferred to [facility] from [facility] for Pleurx catheter placement by Dr. Dimas on 02/18/2019. The patient will be admitted to telemetry for serial cardiac enzymes, serial EKG's, cardiac rhythm monitoring. Improved symptoms on BiPAP. We will continue. Continue oral Lasix. Giving IV Lasix will not promote significant diuresis from the pleural effusion. COPD- Continue Breo, Advair and add duo nebs PRN. Continue nasal cannula 2 L oxygen, titrate to keep pulse ox around 92% Remainder of orders and notations as noted. Resident Activity Tracking Resident Involvement: Resident Care Provided Care Provided: Adult Hospital Medicine
[2019-02-17] MEDS ORDERED: GLUCAGON FOR INJ 1 MG VIAL SQ PRN (04:27)
[2019-02-17] MEDS ORDERED: GLUCOSE 10 TABS/TUBE PO PRN (04:27)
[2019-02-17] MEDS ORDERED: DEXTROSE 50% 50 ML SYRINGE IV PRN (04:27)
[2019-02-17] MEDS ORDERED: GLUCOSE 40% GEL 15 GM TUBE PO PRN (04:27)
[2019-02-17] MEDS ORDERED: ALBUT/IPRATROP 3MG/0.5MG NEB 3 ML VIAL INH PRN (04:51)
[2019-02-17] MEDS ORDERED: TRAMADOL HCL 50 MG TABLET PO PRN (04:51)
[2019-02-17] MEDS ORDERED: MECLIZINE HCL 25 MG TAB PO PRN (04:51)
[2019-02-17] MEDS ORDERED: SENNA 8.6 MG TAB PO PRN (04:51)
[2019-02-17 06:40] LABS: Hematocrit (blood only) 33.8 % (37-47); Hemoglobin 9.9 g/dL (12.0-16.0); Immature Granulocytes # (auto) 0.01 K/uL (0.00-0.02); Immature Granulocytes % (auto) 0.2 %; Lymphocytes # (auto) 0.22 K/uL (1.2-3.4); Lymphocytes % (auto) 3.4 %; Mean Corpuscular Hgb Conc 29.3 g/dL (32-36); Mean Corpuscular Volume 86.9 fL (80-100); Mean Platelet Volume 10.7 fL (7.4-10.4); Monocytes # (auto) 0.03 K/uL (0.11-0.59); Monocytes % (auto) 0.5 %; Neutrophils # (auto) 6.15 K/uL (1.4-6.5); Neutrophils % (auto) 95.9 %; Platelet Count 114 K/uL (130-400); RDW Coefficient of Variation 19.9 % (11.5-14.5); Red Blood Count 3.89 M/uL (4.2-5.4); White Blood Count 6.41 K/uL (4.8-10.8)
[2019-02-17 07:29] LABS: BUN Creatinine Ratio 8.6 (10-20); Creatinine Clr Calc Pharmacy 8.6 ml/min; Est GFR (African American) 7.3; Est GFR (Non-African American) 6.3; Potassium 4.7 mmol/L (3.5-5.1)
--- NOTE | 2019-02-17 07:54 | XRay Report ---
XR chest 1V portable CLINICAL HISTORY: Pleural effusions. COMPARISON STUDY: Chest radiograph November 05, 2018. FINDINGS: There are median sternotomy wires, mediastinal surgical clips and a left subclavian biventr icular pacer/AICD. There is no pneumothorax. A moderate right pleural effusion is noted. Moderate car diomegaly is noted. There is mild pulmonary edema. IMPRESSION: 1. Moderate right pleural effusion. 2. Mild pulmonary edema. Electronically signed by: Marco A Feliz M.D. 02/17/2019 7:53 AM
[2019-02-17] MEDS ORDERED: LIDOCAINE HCL 1% 20 ML VIAL ONE (08:16)
[2019-02-17 09:32] LABS: Estimated Average Glucose 120 mg/dl; Hemoglobin A1C 5.8 % (4.5-5.6)
--- NOTE | 2019-02-17 09:51 | Consultation Report ---
DATE OF CONSULTATION: 02/17/2019 REASON FOR CONSULTATION: Recurrent right pleural effusion. HISTORY OF PRESENT ILLNESS: Asmita Christopher is a patient with a poor heart and with chronic renal insufficiency who has had recurrent right pleural effusions. This has been managed by Dr. Nehemias Griffin from [facility] with 2 thoracenteses. The patient improved, but the effusion quickly recurred. I do have some concerns about the patient. She does have radiographic evidence of mild cirrhosis and has had some ascites in the past. We did discuss possible hepatic hydrothorax, which would not be good; however, this effusion is only on the right side. The left is clear. We have set her up to insert a PleurX catheter; however, she got admitted to the hospital with flash pulmonary edema, is quite short of breath, although she is improved. We are going to assess her about putting in a PleurX catheter today. PAST MEDICAL HISTORY: 1. Congestive heart failure. 2. Chronic obstructive pulmonary disease. 3. Chronic right pleural effusion. 4. End-stage renal disease. 5. Diabetes mellitus. 6. Chronic atrial fibrillation. 7. Coronary artery disease. 8. Hyperlipidemia. 9. Obstructive sleep apnea. 10. Depression. PAST SURGICAL HISTORY: 1. Coronary artery bypass grafting. 2. Right dialysis fistula. MEDICATIONS: Please see chart. REVIEW OF SYSTEMS: The patient is complaining acute shortness of breath, dyspnea on exertion, and has been quite weak. She has been eating well; however. She has had no nausea, vomiting or diarrhea. She is complaining of dyspnea at rest and she has orthopnea. She is on dialysis. PHYSICAL EXAMINATION: GENERAL: This is a very heavy female who wears glasses. HEENT: Her sclerae are pale, but anicteric. Her tongue is midline. She is edentulous with no oral mucosal lesions. NECK: Supple. She does have some mild bruit but I believe this is her murmur from the heart radiating upward. She does have neck vein distention at 30 degrees, but I detect no lymphadenopathy. She has a thrill in her right upper extremity graft. HEART: She has irregularly irregular rhythm and is tachycardic with a murmur. ABDOMEN: Morbidly obese but soft, nontender and I really do not detect ascites but is difficult given her girth. EXTREMITIES: She does have 2+ edema of her lower extremities. NEUROLOGIC: She is awake, alert, and oriented. Moves all extremities to command. ASSESSMENT AND PLAN: Recurrent pleural effusion. We will insert a PleurX catheter today.
--- NOTE | 2019-02-17 10:10 | XRay Report ---
XR chest 1V portable CLINICAL HISTORY: 83 years-old Female presenting with effusion. TECHNIQUE: Portable upright AP view of the chest was obtained. COMPARISON: 02/17/2019 at 7:31 AM. FINDINGS: Left subclavian implanted cardiac defibrillator with leads to the right atrium, right reticular apex, and coronary sinus. Additional abandoned right ventricular pacer lead remains in place. Median marion otomy wires and mediastinal surgical clips noted. Extensive overlying external leads along the latera l left chest. Partially visualized vascular stent in the right upper arm. A pleural drain is noted at the right lung base new from prior. Atherosclerosis of the aortic arch. Cardiac silhouette moderately enlarged. Slight decreased size of the small to moderate right pleural effusion. Extensive bibasilar opacities, right greater than left. Pulmonary vascular prominence and bronchial wall thickening again noted. Equivocal trace right apica l pneumothorax. Degenerative changes of the thoracic spine. Upper abdomen normal. IMPRESSION: 1. Interval placement of a right basilar pleural drain slight decrease size of the right pleural eff usion. 2. Questionable right apical pneumothorax. Attention on follow-up. 3. Significant congestive change in the setting of cardiomegaly with suspected mild pulmonary edema. Electronically signed by: Pierre Chapa M.D. 02/17/2019 10:09 AM
[2019-02-17] MEDS ORDERED: SODIUM CHLORIDE 0.9% 1000ML 1,000 ML IV PRN (10:15)
--- NOTE | 2019-02-17 10:22 | Nephrology Consultation ---
Date of Consultation February 17, 2019 Assessment & Plan (1) [facility] F-160NR Qb 450 EDW 99.5kg -- Will provide heparin free HD today according to outpatient orders. HD RN notified -- Nephrovite or pharmacy equivalent daily -- HD diet (2) Benign essential hypertension: -- Acceptable blood pressure control. No change to current medical regimen (3) Anemia: -- Mild asymptomatic anemia. Will monitor -- Will provide ALEXEI w/ HD (4) Atrial fibrillation: -- On Apixaban therapy (5) Pleural effusion on right: -- Related to pulmonary HTN and diastolic CHF -- s/p R Pleur-x catheter placement by Dr. Dimas 02/17/19 History of Present Illness Reason for Consultation: ESRD on IHD Attending Physician: Charly Day MD History of Present Illness Mrs. Hernadez is an 83-year-old white female who is seen at the request of Dr. Day to provide inpatient HD and assist with medical management. Medical records in the EMR were reviewed today and are summarized as follows: Mrs. Hernadez has ESRD (Dr. Little, [facility] 4 hours 2K 2Ca HCO3 30 F- 160NR Qb 450 EDW 99.5kg R upper arm AVG). Her medical history is significant for ischemic CMP s/p AICD, HTN, AOSM, chronic atrial fibrillation Apixaban therapy, chronic diastolic CHF, chronic lung disease, JOHN on CPAP and hepatic cirrhosis w/ ascites. The patient reports that she has been adherent to her prescribed dialysis regimen and there have been no recent complications w/ her treatments or vascular access. Mrs. Hernadez reports abrupt onset of dyspnea yesterday evening. She presented to [facility] ED where SaO2 was in the high 80's. Patient was placed on Bipap and given nubulizers, steroids and diuretics. CXR revealed a large R pleural effusion. Mrs. Hernadez reported that the effusion was a chronic finding and that she was scheduled to undergo Pleur-x catheter this week by Dr. Dimas. Mrs. Hernadez was transferred to [facility] for Pleur-x catheter placement and inpatient HD. Allergies Allergy/AdvReac Type Severity Reaction Status Date / Time adhesive tape Allergy Redness of Verified 11/03/18 21:22 Skin Penicillins Allergy Swelling Verified 11/03/18 21:22 of Lip/Tongue/Throat Home Medications Home Medications Medication Instructions Recorded Confirmed Type Lipitor 20 mg PO HS 11/03/18 02/17/19 History Miralax 17 g PO DAILY 11/03/18 02/17/19 History Nephrocaps 1 cap PO DAILY 11/03/18 02/17/19 History apixaban 2.5 mg PO BID 11/03/18 02/17/19 History brimonidine 1 drp OPHTHALMIC (EYE) BID 11/03/18 02/17/19 History dorzolamide 1 drp BID 11/03/18 02/17/19 History fluticasone propionate 1 spray INTRANASAL DAILY 11/03/18 02/17/19 History furosemide 40 mg PO BID 11/03/18 02/17/19 History losartan 12.5 mg PO PM 11/03/18 11/03/18 History meclizine 25 mg PO Q12 PRN 11/03/18 02/17/19 History pantoprazole 40 mg PO BID 11/03/18 02/17/19 History paroxetine HCl 20 mg PO DAILY 11/03/18 02/17/19 History sennosides 2 tab PO DAILY PRN 11/03/18 02/17/19 History lidocaine 1 patch TRANSDERMAL HS #10 ea 11/07/18 02/17/19 Rx tramadol 25 mg PO Q4H PRN #10 tab 11/07/18 02/17/19 Rx fluticasone furoate-vilanterol 1 inh INHALATION DAILY 02/17/19 02/17/19 History [Breo Ellipta] insulin glargine [Lantus Solostar 20 unit SC DAILY 02/17/19 02/17/19 History U-100 Insulin] ipratropium-albuterol 3 ml INHALATION Q6 PRN 02/17/19 02/17/19 History melatonin 3 mg PO HS 02/17/19 02/17/19 History sevelamer HCl 800 mg PO TID 02/17/19 02/17/19 History Patient History Medical History Chronic lung disease (Chronic) Anemia (Chronic) Cirrhosis of liver (Chronic) End stage renal disease (Chronic) CHF (congestive heart failure) (Chronic) Benign essential hypertension (Chronic) Pleural effusion (Chronic) Obstructive sleep apnea (Chronic) Type 2 diabetes mellitus (Chronic) Atrial fibrillation (Chronic) Biventricular cardiac pacemaker in situ (Chronic) CAD (coronary artery disease) (Chronic) Surgical History Hx of CABG (Chronic) Social History Preferred Language: Urdu Communication Ability: Effective Plumber Cub Required: No Beliefs That Will Affect Care: None marital status: / Current Living Situation: Family Current Living Situation Comment: [facility], home for one day Other Information That Helps Us Care for You: No Feels Safe at Home: Yes Safety Concerns: Feels Safe At This Time Smoking Status: Never smoker Do You Dip or Chew Tobacco: No Second Hand Exposure: Yes (history, no longer is exposed) Hx Alcohol Use: Yes Hx Substance Use: No Review of Systems Constitutional: no fever Respiratory: + dyspnea; no pain on inspiration Cardiovascular: no chest pain and no palpitations Gastrointestinal: no abdominal pain, no vomiting and no diarrhea/loose stools Physical Exam Constitutional: + obese; not in distress Eyes: PERRL, conjunctivae normal, anicteric sclerae Neck: trachea midline, no thyromegaly Respiratory: normal respiratory effort, lungs clear to auscultation normal respiratory effort; no respiratory distress Cardiovascular: Rate/Rhythm: + irregularly irregular Extremities: + AV fistula (RUE AVG + bruit) Gastrointestinal (Abdomen): Inspection/Auscultation: + abdomen distended Percussion/Palpation: abdomen soft; abdomen nontender Results & Data Vital Signs (Past 12 Hours) Vital Signs Temp Pulse Resp BP Pulse Ox 02/17/19 08:02 36.8 C 86 24 138/68 99 02/17/19 03:04 36.4 C L 102 H 26 H 108/69 98 Laboratory Results Laboratory Tests 02/17/19 02/17/19 06:15 06:15 WBC 6.41 Hgb 9.9 L Hct 33.8 L Plt Count 114 L Sodium 135 L Potassium 4.7 Chloride 101 Carbon Dioxide 24 BUN 50 H Creatinine 5.79 H* Glucose 202 H Calcium 9.0 Diagnostic Findings 02/17/19 CXR: There are median sternotomy wires, mediastinal surgical clips and a left subclavian biventricular pacer/AICD. There is no pneumothorax. A moderate right pleural effusion is noted. Moderate cardiomegaly is noted. There is mild pulmonary edema.
--- NOTE | 2019-02-17 10:28 | Operative Report ---
DATE OF OPERATION: 02/17/2019 PREOPERATIVE DIAGNOSIS: Recurrent right pleural effusion. POSTOPERATIVE DIAGNOSIS: Recurrent right pleural effusion. PROCEDURE: Insertion of right PleurX catheter. SURGEON: Dallas Dimas MD TRACTOR DRIVER TEAMSTER: JENNY Renee ANESTHESIA: Local. SPECIFICS OF PROCEDURE: With the patient in a left lateral decubitus position, her right chest was prepped and draped in usual sterile fashion after an ultrasound had been used to find a good window into the chest. After appropriate timeout had been called, a skin wheal was raised with 25-gauge needle, 1% Xylocaine. A large bore needle was used to anesthetize the deeper tissues and pleura. We got free flowing rust colored fluid back. Guidewire was inserted through the needle and the needle removed. Approximately 12 cm anterior to this another skin wheal was raised with 25-gauge needle, 1% Xylocaine and 1-cm incisions were made at both of these skin wheals. A long needle was used to anesthetize the subcutaneous tissues between these 2 incisions. A tunneler was then attached to the PleurX catheter and dragged from the anterior to posterior incision and the tunneler removed. An introducer sheath with an inner cannula was placed over the guidewire into the pleural cavity and inner cannula and guidewire removed. Fluid was forcefully injected at this point. I then placed a PleurX catheter through the peel away catheter, which was removed. A 2-0 silks were used to close the posterior incision and then anchored the catheter to the patient's skin anteriorly. 1100 mL of rust colored fluid was drained and she complained of right chest pain with reexpansion with coughing, so we stopped after only 1100 mL. Antimicrobial dressings were placed. Sterile cap was placed and this tube was taped in place. She tolerated it well. I attest to the content of the Intraoperative Record and any orders documented therein. Any exception s are noted below.
[2019-02-17] MEDS ORDERED: EPOETIN ALFA 10,000 UNITS/ML VIAL IV SCH (10:30)
[2019-02-17] MEDS: SEVELAMER HCL 800 MG TABLET PO SCH ×3 (10:31→18:34)
[2019-02-17] MEDS: PANTOprazole 40 MG TAB PO SCH ×2 (10:31→20:18)
[2019-02-17] MEDS: NEPHROCAPS PO SCH (10:31)
[2019-02-17] MEDS: PARoxetine HCl 20 MG TAB PO SCH (10:31)
[2019-02-17] MEDS: FUROSEMIDE 40 MG TAB PO SCH ×2 (10:32→18:34)
[2019-02-17] MEDS: FLUTICASONE PROPIONATE NA SPR 16 GM BTL SCH (10:33)
[2019-02-17] MEDS: DORZOLAMIDE HCL 2% OPH SOLN 10 ML BTL OP SCH ×2 (10:33→20:24)
[2019-02-17] MEDS: INSULIN GLARGINE SOLOSTAR 100 UNITS/ML 3 ML PEN SC SCH ×2 (10:33→20:52)
[2019-02-17] MEDS: BRIMONIDINE TARTRATE-P 0.15% 5 ML BTL OP SCH ×2 (10:34→20:24)
[2019-02-17] MEDS: INSULIN ASPART 100 UNITS/ML 3 ML PEN SC SCH ×4 (10:34→20:18)
[2019-02-17] MEDS: ACETAMINOPHEN 325 MG TAB PO PRN ×2 (10:39→16:36)
[2019-02-17 10:59] LABS: Hepatitis B Surface Antibody Non-Immune
[2019-02-17 11:10] LABS: Hepatitis B Surface Antigen Neg (Neg)
--- NOTE | 2019-02-17 17:40 | Family Medicine Progress Note ---
Date of Service February 17, 2019 Assessment & Plan (1) CHF (congestive heart failure): Ms. Christopher is a 83 year old female with a complex PMH including CAD s/p CABG, pacemaker placement, DM2, Hepatic Cirrhosis, JOHN, HTN, anemia, COPD, ESRD on dialysis, chronic pleural effusions who presented to [facility] for acute dyspnea. Was managed with CPAP, Bipap. Patient was transferred to [facility] for dialysis and for scheduled pleurx catheter placement by Dr. Dimas on 02/18/19. Acute Exacerbation of chronic hypoxic respiratory failure -Presumptively related to fluid overload in setting of chronic effusions, CHF, ESRD, COPD. -CXR showed moderate right pleural effusion and mild pulmonary edema -Thank you to Dr. Dimas for consult -> pt underwent placement of PleurX catheter today with removal of 1100mL of fluid -pt generally wears 2L of O2 at night, and is on 2L of oxygen via nasal cannula here -Pt takes 40mg lasix BID despite minimal UO, will continue -Fluid restriction of 1500cc -Pt received solumedrol 125mg/atrovent/xopenex at OSH. Since pt at baseline, will keep on home regimen. CHF/Chronic Pleural effusion -as above ESRD -Consulted nephrology for dialysis, which patient receives MWF -> pt underwent dialysis today with ALEXEI -Makes minimal urine -Continue nephrocaps, sevelamer -Renal dosing of meds COPD -Continue breo, advair 250/50, duonebs prn -Chronically wears 2L at night, has been requiring 2L during day recently T2DM -ISS initiated, pt on lantus 20 u daily as outpt Chronic afib -On eliquis 2.5 BID CAD s/p CABG, AICD/pacemaker in situ -Continue to monitor, paced rhythm -On eliquis -Cont losartan/statin HTN -continue losartan HLD -continue Atorvastatin JOHN -Pt wears CPAP at night Anemia -Chronic. OSH shows H/h 9.3/33 -Hgb today stable at 9.9 Cirrhosis of liver -Without apparent ascites/trace ascites -noted on history GERD -continue home pantoprazole Chronic pain -lidoderm patch -Tramadol 50 prn Depression -continue home paroxetine Code: DNR/DNI Disposition: remains on telemetry. Pt from home - lives with son, who provides transportation. CM following, will likely require home health on d/c DVT Prophylaxis: Eliquis (2) Pleural effusion: (3) End stage renal disease: (4) Chronic lung disease: (5) Type 2 diabetes mellitus: (6) CAD (coronary artery disease): (7) Hx of CABG: (8) Benign essential hypertension: (9) Anemia: (10) Obstructive sleep apnea: (11) Cirrhosis of liver: (12) Atrial fibrillation: (13) Biventricular cardiac pacemaker in situ: (14) Chronic pain: (15) Chronic pulmonary edema: (16) Depression: Supervising Physician Co-Signing Physician Notes Resident Physician Supervision Note: I independently interviewed and examined the patient and verified the guillaume history and physical, reviewed labs and image studies, discussed the case with the resident Dr. Hagan and agree with the findings and care plan. Subjective See Dr. Richardson's H&P for details on history and physical. Results & Data Vital Signs (Past 12 Hours) Vital Signs Temp Pulse Pulse Pulse Resp BP BP 02/17/19 15:55 36.6 C 87 105/58 L 02/17/19 15:40 95 H 99/42 L 02/17/19 15:20 85 102/58 L 02/17/19 15:00 86 111/50 L 02/17/19 14:40 85 102/52 L 02/17/19 14:20 84 91/50 L 02/17/19 14:00 81 93/47 L 02/17/19 13:40 87 97/42 L 02/17/19 13:20 83 95/47 L 02/17/19 13:00 83 105/50 L 02/17/19 12:40 82 107/53 L 02/17/19 12:20 85 105/51 L 02/17/19 12:00 85 118/54 L 02/17/19 11:45 122/57 L 02/17/19 11:26 36.6 C 80 02/17/19 08:02 36.8 C 86 24 138/68 Pulse Ox 02/17/19 15:55 02/17/19 15:40 02/17/19 15:20 02/17/19 15:00 02/17/19 14:40 02/17/19 14:20 02/17/19 14:00 02/17/19 13:40 02/17/19 13:20 02/17/19 13:00 02/17/19 12:40 02/17/19 12:20 02/17/19 12:00 02/17/19 11:45 02/17/19 11:26 02/17/19 08:02 99
[2019-02-17] MEDS: APIXABAN 2.5 MG TAB PO SCH ×2 (18:34→20:23)
[2019-02-17] MEDS: ATORVASTATIN 20 MG TAB PO SCH (20:19)
[2019-02-17] MEDS: LIDOCAINE 5% 1 PATCH TD SCH (20:23)
[2019-02-17] MEDS ORDERED: LOSARTAN POTASSIUM 25 MG TAB PO SCH (21:00)
[2019-02-18] MEDS: ACETAMINOPHEN 325 MG TAB PO PRN ×2 (06:05→14:43)
[2019-02-18 07:08] LABS: Appearance Pleural Fluid HAZY; Color Pleural Fluid RED; RBC Pleural Fluid (A) 57000 /uL; Source Pleural Fluid RIGHT LUNG; WBC Pleural Fluid (A) 1402 /uL
[2019-02-18 07:10] LABS: Mononuclear WBC Pleural 14.9 %; Polynuclear WBC Pleural 85.1 %
[2019-02-18 07:22] LABS: Total Protein Pleural Fluid 3.1 g/dl
--- NOTE | 2019-02-18 07:36 | XRay Report ---
XR chest 1V portable HISTORY: 83 years-old Female effusion follow-up study in a patient with right pleural effusion COMPARISON: Chest radiograph 02/17/2019 TECHNIQUE: Portable AP view of the chest FINDINGS: Cardiac silhouette is enlarged, unchanged. Prior median sternotomy. Stable positioning of left subcla vian pacer/AICD leads. Calcification of the thoracic aortic arch. There is a small lateral right basi lar pneumothorax developed in the interval with a right pleural drainage catheter. Right apical pneum othorax also noted with pleural separation of 2.5 cm. Pleural separation measures up to approximately 4 cm laterally. No residual right-sided pleural effusion identified. Pulmonary vascular congestion w ith unchanged interstitial coarsening. Degenerative changes of the shoulders and spine. IMPRESSION: 1. Small right-sided pneumothorax with right-sided pleural drainage catheter again noted. 2. Resolution of the previously described right pleural effusion. 3. Cardiomegaly with pulmonary vascular congestion. The above report was generated using voice recognition software. It may contain grammatical, syntax o r spelling errors. Electronically signed by: Ghassan Luz M.D. 02/18/2019 7:35 AM
[2019-02-18 07:46] LABS: Hematocrit (blood only) 31.1 % (37-47); Hemoglobin 9.1 g/dL (12.0-16.0); Mean Corpuscular Hgb Conc 29.3 g/dL (32-36); Mean Corpuscular Volume 86.1 fL (80-100); RDW Coefficient of Variation 20.2 % (11.5-14.5); RDW Standard Deviation 63.3 fL (36.4-46.3); Red Blood Count 3.61 M/uL (4.2-5.4); White Blood Count 5.08 K/uL (4.8-10.8)
[2019-02-18] MEDS: CARBOHYDRATES FOR HYPOGLYCEMIA PO PRN ×2 (07:51→08:09)
[2019-02-18 08:10] LABS: Platelet Count 90 K/uL (130-400); Platelet Estimate Decreased (Normal)
[2019-02-18] MEDS: PARoxetine HCl 20 MG TAB PO SCH (08:11)
[2019-02-18] MEDS: NEPHROCAPS PO SCH (08:11)
[2019-02-18] MEDS: SEVELAMER HCL 800 MG TABLET PO SCH ×3 (08:11→17:24)
[2019-02-18] MEDS: BRIMONIDINE TARTRATE-P 0.15% 5 ML BTL OP SCH ×2 (08:14→21:47)
[2019-02-18] MEDS: FLUTICASONE PROPIONATE NA SPR 16 GM BTL SCH (08:14)
[2019-02-18] MEDS: APIXABAN 2.5 MG TAB PO SCH ×2 (08:14→21:48)
[2019-02-18] MEDS: DORZOLAMIDE HCL 2% OPH SOLN 10 ML BTL OP SCH ×2 (08:14→21:47)
[2019-02-18] MEDS: PANTOprazole 40 MG TAB PO SCH ×2 (08:15→21:47)
[2019-02-18 08:28] LABS: BUN Creatinine Ratio 7.7 (10-20); Calcium 8.8 mg/dl (8.5-10.1); Creatinine Clr Calc Pharmacy 12.8 ml/min; Est GFR (African American) 12.5; Est GFR (Non-African American) 10.8
--- NOTE | 2019-02-18 09:32 | Surgery Progress Note ---
Date of Service February 18, 2019 Assessment & Plan (1) Pleural effusion on right: -Pleurex catheter placed on 02/17/19 -cytology is pending -no organisms on gram stain; culture is pendng -thus far fungal culture (-) -AFB culture is pending -continue draining pleurex daily while in hospital (was drained for 900 cc this morning) -at time of d/c drainage may be changed to every other day if this is more convenient with her dialysis scheduled -our office will call her for follow-up at time of d/c -discussed with resident of primary service Subjective Pt. states she notices a significant improvement in her breathing since her pleurex was placed and fluid drained. She noted some pain with drainage this morning, but overall feels better than yesterday. Physical Exam Constitutional: well nourished; no acute distress Respiratory: normal respiratory effort; no respiratory distress, no labored breathing and does not use accessory muscles BS re decreased at bases, no wheezing noted Results & Data Vital Signs (Past 12 Hours) Vital Signs Temp Pulse Pulse Resp BP BP Pulse Ox 02/18/19 08:41 97 02/18/19 08:40 36.3 C L 81 16 85/57 L 100 02/18/19 06:05 91/54 L 100 02/18/19 03:20 36.4 C L 85 18 109/44 L 100 02/18/19 01:47 83 02/18/19 00:45 95/60 L 02/18/19 00:32 36.5 C 91 H 18 90/57 L 99 02/17/19 22:15 83 16 95
--- NOTE | 2019-02-18 09:48 | Nephrology Progress Note ---
Date of Service February 18, 2019 Assessment & Plan (1) End stage renal disease: -- [facility] MWF 4 hours 2K 2Ca HCO3 30 F-160NR Qb 450 EDW 99.5kg -- Will schedule next HD for am -- Nephrovite or pharmacy equivalent daily -- HD diet (2) Benign essential hypertension: -- Patient has relative hypotension. Will stop Losartan. -- Stop Furosemide as patient has not had UO since admission (3) Anemia: -- Mild asymptomatic anemia. Will monitor -- Will provide ALEXEI w/ HD (4) Atrial fibrillation: -- On Apixaban therapy (5) Pleural effusion on right: -- Related to pulmonary HTN and diastolic CHF -- s/p R Pleur-x catheter placement by Dr. Dimas 02/17/19 -- CXR film this am shows a small pneumothorax but nearly complete resolution of pleural effusion Subjective Mrs. Christopher was seen & examined in her hospital room this morning. She underwent R pleur-x catheter placement yesterday followed by heparin free HD. There were no complications during HD. AVF functioned well. 3 L UF was obtained. This morning Mrs. Christopher reports that she has mild R sided pleuritic discomfort but her overall breathing is subjectively improved. Review of Systems Constitutional: no fever Respiratory: no dyspnea Cardiovascular: no chest pain Gastrointestinal: no vomiting and no diarrhea/loose stools Physical Exam Constitutional: + obese; not in distress Eyes: PERRL, conjunctivae normal, anicteric sclerae Neck: trachea midline, no thyromegaly Respiratory: normal respiratory effort, lungs clear to auscultation normal respiratory effort; no respiratory distress Cardiovascular: Rate/Rhythm: + irregularly irregular Extremities: + AV fistula (RUE AVG + bruit) Gastrointestinal (Abdomen): Inspection/Auscultation: + abdomen distended Percussion/Palpation: abdomen soft; abdomen nontender Results & Data Vital Signs (Past 12 Hours) Vital Signs Temp Pulse Pulse Resp BP BP Pulse Ox 02/18/19 08:41 97 02/18/19 08:40 36.3 C L 81 16 85/57 L 100 02/18/19 06:05 91/54 L 100 02/18/19 03:20 36.4 C L 85 18 109/44 L 100 02/18/19 01:47 83 02/18/19 00:45 95/60 L 06/04/19 00:32 36.5 C 91 H 18 90/57 L 99 02/17/19 22:15 83 16 95 Laboratory Results Laboratory Tests 02/18/19 02/18/19 07:13 07:13 WBC 5.08 Hgb 9.1 L Hct 31.1 L Plt Count 90 L Sodium 138 Potassium 4.0 Chloride 104 Carbon Dioxide 28 BUN 29 H Creatinine 3.70 H D Diagnostic Findings CXR 02/18/19: Cardiac silhouette is enlarged, unchanged. Prior median sternotomy. Stable positioning of left subclavian pacer/AICD leads. Jose cification of the thoracic aortic arch. There is a small lateral right basilar pneumothorax developed in the interval with a right pleural drainage catheter. Right apical pneumothorax also noted with pleural separation of 2.5 cm. Pleural separation measures up to approximately 4 cm laterally. No residual right-sided pleural effusion identified. Pulmonary vascular congestion with unchanged interstitial coarsening. Degenerative changes of the shoulders and spine.
[2019-02-18] MEDS: INSULIN ASPART 100 UNITS/ML 3 ML PEN SC SCH ×4 (10:08→21:43)
[2019-02-18] MEDS: INSULIN GLARGINE SOLOSTAR 100 UNITS/ML 3 ML PEN SC SCH ×2 (10:08→21:45)
[2019-02-18] MEDS: FUROSEMIDE 40 MG TAB PO SCH (10:58)
--- NOTE | 2019-02-18 11:42 | Family Medicine Progress Note ---
Date of Service February 18, 2019 Assessment & Plan (1) CHF (congestive heart failure): Ms. Christopher is a 83 year old female with a complex PMH including CAD s/p CABG, pacemaker placement, DM2, Hepatic Cirrhosis, JOHN, HTN, anemia, COPD, ESRD on dialysis, chronic pleural effusions who presented to [facility] for acute dyspnea. Was managed with CPAP, Bipap. Patient was transferred to [facility] for dialysis and for scheduled pleurx catheter placement by Dr. Dimas on 02/18/19. Acute Exacerbation of chronic hypoxic respiratory failure -Presumptively related to fluid overload in setting of chronic effusions, CHF, ESRD, COPD -CXR showed moderate right pleural effusion and mild pulmonary edema -Thank you to Dr. Dimas for consult -> pt underwent placement of PleurX catheter on 02/17 with removal of 1100mL of fluid. A further 900mL were removed this AM -> gram stain of pleural fluid negative, cx pending -> small pneumothorax noted on repeat CXR - not of any clinical significance -pt generally wears 2L of O2 at night, and was able to be weaned off of oxygen today -Pt takes 40mg lasix BID at home despite minimal UO - this was discontinued given no urine output while in hospital -Fluid restriction of 1500cc CHF/Chronic Pleural effusion -as above ESRD -Consulted nephrology for dialysis, which patient receives MWF -> pt underwent dialysis on 02/17 with ALEXEI -Makes minimal urine -Continue nephrocaps, sevelamer -Renal dosing of meds COPD -Continue breo, advair 250/50, duonebs prn -Chronically wears 2L at night T2DM -ISS initiated, pt on lantus 20 u daily as outpt -lantus decreased to 5 units BID given patient's significant lows this AM Chronic afib -On eliquis 2.5 BID CAD s/p CABG, AICD/pacemaker in situ -Continue to monitor, paced rhythm -On eliquis HTN -losartan discontinued by nephro given hypotension in hospital HLD -continue Atorvastatin JOHN -Pt wears CPAP at night Anemia -Chronic. OSH shows H/h 9.3/33 -Hgb today stable at 9.1 Cirrhosis of liver -Without apparent ascites/trace ascites -noted on history GERD -continue home pantoprazole Chronic pain -lidoderm patch -Tramadol 50 prn Depression -continue home paroxetine Code: DNR/DNI Disposition: stable for transfer to med/surg. Pt from home - lives with son, who provides transportation. CM following, arranging home health to assist with PleurX catheter. Anticipate d/c tomorrow. DVT Prophylaxis: Eliquis (2) Pleural effusion: (3) End stage renal disease: (4) Chronic lung disease: (5) Type 2 diabetes mellitus: (6) CAD (coronary artery disease): (7) Hx of CABG: (8) Benign essential hypertension: (9) Anemia: (10) Obstructive sleep apnea: (11) Cirrhosis of liver: (12) Atrial fibrillation: (13) Biventricular cardiac pacemaker in situ: (14) Chronic pain: (15) Chronic pulmonary edema: (16) Depression: Supervising Physician Co-Signing Physician Notes Resident Physician Supervision Note: I independently interviewed and examined the patient and verified the guillaume hi story and physical, reviewed labs and image studies, discussed the case with the resident Dr. Hagan and agree with the findings and care plan. Subjective Ms. Christopher reports her breathing is better today. She states she has some discomfort around her PleurX catheter site, but denies any chest pain. She is up and sitting in a chair and states she feels better than when she came in. She has no other complaints today. Review of Systems Constitutional: no fever and no chills Respiratory: no cough, no chest congestion and no dyspnea Cardiovascular: + edema; no chest pain Physical Exam Constitutional: WD/WN, vitals as above + obese Respiratory: normal respiratory effort and able to speak in complete sentences Auscultation: lungs clear to auscultation bilaterally and + diminished lung sounds Cardiovascular: Rate/Rhythm: regular rate and regular rhythm Extremities: + edema (b/l leg edema, and edematous arms b/l) Gastrointestinal (Abdomen): Inspection/Auscultation: abdomen normal to inspection Percussion/Palpation: abdomen soft; abdomen nontender Psychiatric: A+Ox3, euthymic affect Results & Data Vital Signs (Past 12 Hours) Vital Signs Temp Pulse Pulse Pulse Resp BP BP 02/18/19 11:05 36.2 C L 101 H 22 74/50 L 02/18/19 08:41 02/18/19 08:40 36.3 C L 81 16 85/57 L 02/18/19 08:00 83 06/04/19 06:05 91/54 L 02/18/19 03:20 36.4 C L 85 18 109/44 L 02/18/19 01:47 83 02/18/19 00:45 95/60 L 02/18/19 00:32 36.5 C 91 H 18 90/57 L Pulse Ox 02/18/19 11:05 100 02/18/19 08:41 97 02/18/19 08:40 100 02/18/19 08:00 02/18/19 06:05 100 02/18/19 03:20 100 02/18/19 01:47 02/18/19 00:45 02/18/19 00:32 99 Resident Activity Tracking Resident Involvement: Resident Care Provided Care Provided: Adult Hospital Medicine
[2019-02-18] MEDS ORDERED: ONDANSETRON 4 MG OD TAB PO PRN (13:50)
[2019-02-18] MEDS: LIDOCAINE 5% 1 PATCH TD SCH (21:46)
[2019-02-18] MEDS: ATORVASTATIN 20 MG TAB PO SCH (21:48)
[2019-02-19] MEDS: ACETAMINOPHEN 325 MG TAB PO PRN (06:04)
[2019-02-19] MEDS ORDERED: EPOETIN ALFA 10,000 UNITS/ML VIAL IV ONE (07:00)
[2019-02-19] MEDS ORDERED: SODIUM CHLORIDE 0.9% 1000ML 1,000 ML IV PRN (07:00)
[2019-02-19 08:42] LABS: Mean Corpuscular Hgb Conc 29.8 g/dL (32-36)
--- NOTE | 2019-02-19 08:58 | Discharge Summary ---
Date of Service February 19, 2019 Admission HPI Per Admitting Provider Patient is an 83yo F complex PMH including ESRD on dialysis, Chronic systolic CHF, COPD, chronic pleural effusion who presents as direct admit from [facility] for acute onset dyspnea. She notes this occurred about 7pm on 02/16 and immediately called EMS. On arrival at [facility] her saturations were in the high 80s with tachypnea. She was placed on CPAP and mildly improved but could not complete full sentences while talking. Started on Bipap. She was given xopenex, atrovent neb, methylpred 125, and 40 IV lasix and was eventually well enough to move to nasal cannula with O2sats in the 90s. OSH labs significant for chronic anemia (9.5/33.5), Cr 5.2, BNP of 101,926. Patient makes "trickles" of her own urine, gets dialysis MWF. Patient notes she normally wears 2L oxygen at night but in the past few weeks has required all-day oxygen of 2L. CT chest at OSH per provider read showed pleural effusion on R similar to previous. She requested transfer to our facility as she was planning on having pleurx catheter placed by Dr. Dimas on 02/18. Other PMH includes: CAD s/p CABG, AICD/pacemaker in situ, Chronic afib on eliquis, CKD IV on dialysis, COPD, chronic systolic CHF, chronic pleural effusion/pulmonary edema, T2DM, depression, hepatic cirrhosis (unspecified without apparent ascites), chronic pain, HTN, HLD, JOHN on CPAP, chronic anemia Admission Exam Per Admitting Provider Constitutional: WD/WN, vitals as above + acute distress, + morbidly obese, + frail appearing and + edematous Eyes: PERRL, conjunctivae normal, anicteric sclerae (wearing glasses) ENMT: external ear and nose normal, oropharynx normal Neck: normal visual inspection Respiratory: + labored breathing, + uses accessory muscles, able to speak in complete sentences and + abnormal respiratory pattern Auscultation: + diminished lung sounds, + rhonchi (R>L) and + wheezes Cardiovascular: Rate/Rhythm: + tachycardic Heart Sounds: + murmur Extremities: + edema (2+pitting edema) Gastrointestinal (Abdomen): normal bowel sounds, soft, nontender, no hepatosplenomegaly Inspection/Auscultation: + abdomen distended Skin: no rashes, warm and dry + turgor decreased and + lesion (several skin lesions on chest, arms) Neurologic: PERRL, EOMI, accommodation nl, no face palsy, no dysarthria Psychiatric: Orientation: alert and oriented x 3 Principal Diagnosis Acute hypoxic respiratory failure secondary to recurrent right sided pleural effusion Discharge Exam Constitutional WD/WN, vitals as above Respiratory normal respiratory effort and able to speak in complete sentences Auscultation: lungs clear to auscultation bilaterally and + diminished lung sounds Cardiovascular Rate/Rhythm: regular rate and regular rhythm Extremities: + edema (b/l leg edema, and edematous arms b/l) Gastrointestinal (Abdomen) Inspection/Auscultation: abdomen normal to inspection Percussion/Palpation: abdomen soft; abdomen nontender Psychiatric A+Ox3, euthymic affect Discharge Data Allergies Allergy/AdvReac Type Severity Reaction Status Date / Time adhesive tape Allergy Redness of Verified 11/03/18 21:22 Skin Penicillins Allergy Swelling Verified 11/03/18 21:22 of Lip/Tongue/Throat Consultations 02/17/19 03:21 Consult Nephrology Routine 02/17/19 03:25 Consult Case Management - Discharge Planning Routine 02/17/19 03:26 Consult Thoracic Surgery Routine Hospital Course (1) CHF (congestive heart failure): Ms. Christopher is a 83 year old female with a complex PMH including CAD s/p CABG, pacemaker placement, DM2, Hepatic Cirrhosis, JOHN, HTN, anemia, COPD, ESRD on dialysis, chronic pleural effusions who presented to [facility] for acute dyspnea. Was managed with CPAP, Bipap. Patient was transferred to [facility] for dialysis and for scheduled pleurx catheter placement by Dr. Dimas on 02/18/19. Acute Exacerbation of chronic hypoxic respiratory failure -Related to fluid overload in setting of chronic effusions, CHF, ESRD. -CXR showed moderate right pleural effusion and mild pulmonary edema -Dr. Dimas (thoracic surgery) consulted -> pt underwent placement of PleurX catheter on 02/17 with removal of 1100mL of fluid. A further 900mL were removed on 02/18 and 550ml on 02/19. -> gram stain of pleural fluid negative, cx pending. Path w/out evidence of malignant cells. -pt generally wears 2L of O2 at night. On admission, she was requiring O2 around the clock, but was able to be weaned off of oxygen post PleurX placement -Pt takes 40mg lasix BID at home despite minimal UO - this was discontinued given no urine output while in hospital -Recommend fluid restriction of 1500cc CHF/Chronic Pleural effusion -as above ESRD -Consulted nephrology for dialysis, which patient receives MWF -> pt underwent dialysis on 02/17 and 02/19 with ALEXEI -Continue nephrocaps, sevelamer COPD -Continue breo, advair 250/50, duonebs prn -Chronically wears 2L at night T2DM -Pt on lantus 20 u daily as outpt Chronic afib/CAD s/p CABG, AICD/pacemaker in situ -On eliquis 2.5 BID -paced on telemetry monitors HTN -losartan discontinued given hypotension in hospital HLD -continue Atorvastatin JOHN -Pt wears CPAP at night Anemia -Chronic. OSH shows H/h 9.3/33 -Hgb has remained stable at 9.9 -ALEXEI given w/dialysis Cirrhosis of liver -noted on history GERD -continue home pantoprazole Chronic pain -lidoderm patch -Tramadol 50 prn Depression -continue home paroxetine (2) Pleural effusion: (3) End stage renal disease: (4) Chronic lung disease: (5) Type 2 diabetes mellitus: (6) CAD (coronary artery disease): (7) Hx of CABG: (8) Benign essential hypertension: (9) Anemia: (10) Obstructive sleep apnea: (11) Cirrhosis of liver: (12) Atrial fibrillation: (13) Biventricular cardiac pacemaker in situ: (14) Chronic pain: (15) Chronic pulmonary edema: (16) Depression: Total Time Total Time Spent Total Time Spent (In Minutes): 35 Discharge Plan Discharge Items Patient Disposition: Home - Home Health Services Reason For Visit: FLASH PULMONARY EDEMA, SOB Discharge Diagnosis: Fluid build up in the lungs Discharge Goals: Decrease discomfort, Improve disease control and Improve function Activity: Resume your previous activity Non-emergency contact: Primary Care Provider Call non-emergency contact if: you have any medication questions, your symptoms worsen and your temperature is above 101.5 Follow-up/Referrals: Dallas Dimas MD, FACS [Surgeon] - 02/25/19 11:30 am (Please keep your follow up appointment with Dr. Dimas on February 25 at 11:30am. Please come to [facility] for a chest x-ray prior to appointment. ) Nelson Hernadez MD [Primary Care Provider] - 02/20/19 8:20 am (Please keep you scheduled appointment with your Primary Care Physician, Dr. Hernadez, on February 20 at 8:20am. If you have any questions or anjel to reschedule, call the office at [phone].) Diet: Carb Consistent or DM2 Fluids: 1500ml (6 cups) Addtl Provider Instructions: Ms. Christopher, you were seen at [facility] for shortness of breath. This was caused by a build up of fluid in your lungs. Dr. Dimas placed a PleurX catheter in your lungs, which will help to drain this fluid, so that you can breathe better. You were also seen by our kidney doctor, who arranged your dialysis sessions. Your blood pressure was quite low in the hospital, and therefore your kidney doctor stopped two of your medications - your losartan and your lasix. Please do not take these medications anymore. You have follow up appointments with your primary care provider and with Dr. Dimas. The times for these are listed above. If you have a fever, chills, worsening breathing, or chest pain, please seek medical attention. Prescriptions: Continued ipratropium-albuterol 0.5 mg-3 mg(2.5 mg base)/3 mL Solution For Nebulization 3 ml INHALATION Q6 PRN (Reason: Shortness Of Breath) RF: 0 sevelamer HCl 800 mg Tablet 800 mg PO TID RF: 0 melatonin 3 mg Tablet 3 mg PO HS RF: 0 Breo Ellipta 100-25 mcg/dose Blister With Device 1 inh INHALATION DAILY RF: 0 Lantus Solostar U-100 Insulin 100 unit/mL (3 mL) insulin pen 20 unit SC DAILY RF: 0 apixaban 2.5 mg tablet 2.5 mg PO BID RF: 0 meclizine 25 mg tablet 25 mg PO Q12 PRN (Reason: Dizziness) RF: 0 fluticasone propionate 50 mcg/actuation spray,suspension 1 spray Intranasal DAILY RF: 0 paroxetine HCl 20 mg tablet 20 mg PO DAILY RF: 0 pantoprazole 40 mg tablet,delayed release (DR/EC) 40 mg PO BID RF: 0 brimonidine 0.15 % drops 1 drp ophthalmic (eye) BID RF: 0 dorzolamide 2 % drops 1 drp BID RF: 0 sennosides 8.6 mg tablet 2 tab PO DAILY PRN (Reason: Constipation) RF: 0 Nephrocaps 1 cap PO DAILY RF: 0 Lipitor 20 mg PO HS RF: 0 Miralax 17 g PO DAILY RF: 0 tramadol 50 mg Tablet 25 mg PO Q4H PRN (Reason: pain) Qty: 10 RF: 0 lidocaine 5 % Adhesive Patch,Medicated 1 patch Transdermal HS Qty: 10 RF: 0 Discontinued furosemide 40 mg tablet 40 mg PO BID RF: 0 losartan 25 mg tablet 12.5 mg PO PM RF: 0 Stand-Alone Forms: [facility] Discharge Orders: Discharge Order (Routine); Ordered 02/19/19 Ordered By: Solitario Hagan Admission Data Admit Date/Time: 02/17/19 02:55 Attending Provider: Charly Day Admit Provider: Charly Day Primary Care Provider: Nelson Hernadez Other Providers: Haley Richardson ; Dallas Dimas ; Gary Carlson ; Solitario Hagan ; Roya Rocha Service: Medical Other Interventions: Discharge Summary Assessment (RN) Last Done: 02/19/19 16:07 DC Date/Time DO NOT enter until pt leaves facility: 02/19/19 16:50 Supervising Physician Co-Signing Physician Notes Resident Physician Supervision Note: I independently interviewed and examined the patient and verified the guillaume history and physical, reviewed labs and image studies, discussed the case with the resident Dr. Hagan and agree with the findings and care plan. Time spent in discharge 35 min Resident Activity Tracking Resident Involvement: Resident Care Provided Care Provided: Adult Hospital Medicine
[2019-02-19] MEDS: INSULIN ASPART 100 UNITS/ML 3 ML PEN SC SCH ×2 (09:11→14:32)
[2019-02-19 09:13] LABS: Hematocrit (blood only) 33.2 % (37-47); Hemoglobin 9.9 g/dL (12.0-16.0); Mean Corpuscular Volume 85.3 fL (80-100); RDW Coefficient of Variation 20.2 % (11.5-14.5); RDW Standard Deviation 62.2 fL (36.4-46.3); Red Blood Count 3.89 M/uL (4.2-5.4); White Blood Count 6.81 K/uL (4.8-10.8)
[2019-02-19] MEDS: INSULIN GLARGINE SOLOSTAR 100 UNITS/ML 3 ML PEN SC SCH (09:13)
[2019-02-19] MEDS: SEVELAMER HCL 800 MG TABLET PO SCH ×2 (09:13→13:59)
[2019-02-19 09:15] LABS: Mean Platelet Volume 11.3 fL (7.4-10.4); Platelet Count 89 K/uL (130-400)
[2019-02-19 09:16] LABS: Platelet Estimate Decreased (Normal)
[2019-02-19 09:21] LABS: BUN Creatinine Ratio 8.9 (10-20); Calcium 8.7 mg/dl (8.5-10.1); Creatinine Clr Calc Pharmacy 9.8 ml/min; Est GFR (African American) 8.6; Est GFR (Non-African American) 7.4; Potassium 5.1 mmol/L (3.5-5.1)
[2019-02-19] MEDS ORDERED: LIDOCAINE/PRILOCAINE 2.5% EA CRM EXT PRN (09:24)
--- NOTE | 2019-02-19 10:02 | Nephrology Progress Note ---
Date of Service February 19, 2019 Assessment & Plan (1) End stage renal disease: -- [facility] [place] MWF 4 hours 2K 2Ca HCO3 30 F-160NR Qb 450 EDW 99.5kg -- HD today. Orders have been placed in EMR and HD RN notified -- Nephrovite or pharmacy equivalent daily -- HD diet (2) Benign essential hypertension: -- Losartan has been stopped due to relative hypotension -- Furosemide stopped since patient has not had UO since admission (3) Anemia: -- Mild asymptomatic anemia. Will monitor -- Will provide ALEXEI w/ HD (4) Atrial fibrillation: -- On Apixaban therapy (5) Pleural effusion on right: -- Related to pulmonary HTN and diastolic CHF -- s/p R Pleur-x catheter placement by Dr. Dimas 02/17/19 -- CXR film 02/18: small pneumothorax but nearly complete resolution of pleural effusion Subjective Ms. Christopher reports her breathing is better today. She voices no new medical concerns at this time. Review of Systems Constitutional: no fever Respiratory: no dyspnea Cardiovascular: no chest pain Gastrointestinal: no abdominal pain, no vomiting and no diarrhea/loose stools Physical Exam Constitutional: + obese; not in distress Eyes: PERRL, conjunctivae normal, anicteric sclerae Neck: trachea midline, no thyromegaly Respiratory: normal respiratory effort, lungs clear to auscultation normal respiratory effort; no respiratory distress Cardiovascular: Rate/Rhythm: + irregularly irregular Extremities: + AV fistula (RUE AVG + bruit) Gastrointestinal (Abdomen): Inspection/Auscultation: + abdomen distended Percussion/Palpation: abdomen soft; abdomen nontender Results & Data Vital Signs (Past 12 Hours) Vital Signs Temp Pulse Pulse Resp BP BP Pulse Ox 02/19/19 07:17 36.7 C 89 17 112/77 93 02/18/19 23:00 36.6 C 91 H 20 127/60 111 H Laboratory Results Laboratory Tests 02/18/19 02/18/19 07:13 07:13 WBC 5.08 Hgb 9.1 L Hct 31.1 L Plt Count 90 L Sodium 138 Potassium 4.0 Chloride 104 Carbon Dioxide 28 BUN 29 H Creatinine 3.70 H D Glucose 52 L*
[2019-02-19] MEDS: BRIMONIDINE TARTRATE-P 0.15% 5 ML BTL OP SCH (13:57)
[2019-02-19] MEDS: DORZOLAMIDE HCL 2% OPH SOLN 10 ML BTL OP SCH (13:58)
[2019-02-19] MEDS: PARoxetine HCl 20 MG TAB PO SCH (13:58)
[2019-02-19] MEDS: NEPHROCAPS PO SCH (13:58)
[2019-02-19] MEDS: PANTOprazole 40 MG TAB PO SCH (13:58)
[2019-02-19] MEDS: APIXABAN 2.5 MG TAB PO SCH (13:59)
[2019-02-19] MEDS: FLUTICASONE PROPIONATE NA SPR 16 GM BTL SCH (13:59)
--- NOTE | 2019-02-20 11:07 | Progress Note ---
DATE: 02/19/2019 Ms. Christopher was seen today. She has been drained for a marked amount of fluid. She is quite happy, although she still has some discomfort at tube site. I have inspected it today while she was on dialysis and her wound looks good and she has much improved aeration. Unfortunately, this patient has a trapped lung. She is going to continue to drain fluids quite a bit for the near future. I will see her back in the office in a week or two with an x-ray. Her lung does not expand. I do not think this patient is a candidate for anything more aggressive than this tube. We will discuss this in further details. I see her back in the office. TIA
== END 2019-02-19 16:50 | disposition home health service (06) | DRG 189 ==
LOC: 2S 02:55 → 4W 02-18 20:27
DX: Z88.0 Allergy status to penicillin; I50.22 Chronic systolic (congestive) heart failure; F32.9 Major depressive disorder, single episode, unspecified; I13.2 Hypertensive heart and chronic kidney disease with heart failure and with stage 5 chronic kidney disease, or end stage renal disease; Z91.048 Other nonmedicinal substance allergy status; J44.9 Chronic obstructive pulmonary disease, unspecified; Z79.51 Long term (current) use of inhaled steroids; Z99.89 Dependence on other enabling machines and devices; I48.2 Chronic atrial fibrillation; D63.1 Anemia in chronic kidney disease; K21.9 Gastro-esophageal reflux disease without esophagitis; I25.10 Atherosclerotic heart disease of native coronary artery without angina pectoris; Z95.810 Presence of automatic (implantable) cardiac defibrillator; Z66 Do not resuscitate; N18.6 End stage renal disease; G89.29 Other chronic pain; Z95.1 Presence of aortocoronary bypass graft; Z99.2 Dependence on renal dialysis; Z79.899 Other long term (current) drug therapy; E11.22 Type 2 diabetes mellitus with diabetic chronic kidney disease; Z79.4 Long term (current) use of insulin; Z79.01 Long term (current) use of anticoagulants; K74.60 Unspecified cirrhosis of liver; E78.5 Hyperlipidemia, unspecified; J96.21 Acute and chronic respiratory failure with hypoxia; G47.33 Obstructive sleep apnea (adult) (pediatric); J90 Pleural effusion, not elsewhere classified